=== PATIENT | male | born 1980 | race Caucasian/White ===

== ENCOUNTER 2019-04-03 09:10 | Inpatient (IN) | payer BC, SELFPAY ==
[2019-04-03] VITALS (28 sets, daily range): BP systolic 119–152; BP diastolic 91–106; PULSE 56–75; RESP 12–21; TEMP 36.4–37.1; O2SAT 96–100; BMI 27.3; BMI 30.2
--- NOTE | 2019-04-03 09:23 | CPS ---
PT HAD TWO EKGS IN [place] PRIOR TO ARRIVAL. PER DR. BYRD NO NEED FOR EKG UPON PT ARRIVAL TO ED. PT TO GO STRAIGHT TO PERSONAL PROPERTY ASSESSOR.
[2019-04-03] MEDS: TICAGRELOR 90 MG TABLET 180 MG PO (09:25)
[2019-04-03] MEDS: Heparin 10,000 UNITS/10 ML Vial 4000 UNITS IV (09:26)
--- NOTE | 2019-04-03 09:29 | RAD_ITS ---
STUDY: X-RAY CHEST REASON FOR EXAM: Male, 38 years old. STEMI. TECHNIQUE: Single AP portable view of the chest. COMPARISON: Comparison is made with prior examination dated May 04, 2016. FINDINGS: EKG electrodes are seen. Stable minimal increased markings at the left lung base suggestive of linear scarring and/or atelectasis. There is no demonstrated pleural abnormality. Normal size heart. Normal mediastinum and cecy. Normal visualized pulmonary arteries. Normal visualized aortic arch and descending thoracic aorta. Normal visualized thoracic spine. Normal visualized ribs, clavicles, and shoulders. There is no demonstrated abnormality of the visualized soft tissue structures of the upper abdomen. RAD/Chest 1 View (Portable) IMPRESSION: No acute abnormality is seen. Electronically Signed: Chester Dixon, at 9:40 EDT , Service support ,
--- NOTE | 2019-04-03 09:30 | ED.DCSUM_ITS ---
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 His mother and grandfather both had heart disease. He presents today with sudden onset of chest pain that started while driving this morning. He had dry heaves. He was unable to drive and pulled into the fire station. He was found to have anterior ST elevation on his EKG. He was treated by EMS with aspirin, Zofran, and fentanyl. On arrival, his pain is 2 out of 10. No allergies. Non-smoker. Physical Examination: Afebrile and vital signs unremarkable. Patient is alert and oriented. No acute distress. Skin normal without diaphoresis or pallor. Heart regular. Lungs clear. Extremities unremarkable. Test Results: EKG performed by EMS showed anterior elevation and inferior depression of his ST segments. This was not repeated in the ED for time purposes. Chest x-ray appeared to show no acute abnormality, official read is pending. No other testing is available at the time of this dictation. Emergency Department Course and Treatment: EKG was reviewed prior to the patient's arrival, and a STEMI team was paged. Patient was discussed with Dr. Valadez and also Dr. Lal. Patient's also arrived prior to EMS, and I spoke with her to obtain history. Patient was evaluated immediately on arrival to the ED. After discussion with cardiology, patient was also treated with Brilinta and heparin. A chest x-ray was done, but this did not delay care. Official read is pending. Pads and monitor applied. Second IV was placed. Patient is stable. He consented. He will be transferred to the Cell Feed Department Supervisor for further care. Treatment Plan: As above Disposition: Admission after Cell Feed Department Supervisor Impression: 1. Acute anterior STEMI This note was generated with [employer] software. It may contain incorrect words, spelling, and punctuation that were not noted in review of the chart prior to signing ED Disposition - Plan for ED Patient: Referrals: Care Physician,No Primary [Primary Care Provider] -
--- NOTE | 2019-04-03 09:38 | ED.RN ---
STEMI ALERT INITIATED PRIOR TO PT ARRIVAL. PT TO EXAM ROOM AND GIVEN 180 MG BRILINTA PO, 4000 UNITS HEPARIN IVP. CHEST XRAY OBTAIN, SECOND IV INITIATED, AND PT TRANSFERRED IMMEDIATELY TO PROGRAM TRAINER.
[2019-04-03 09:51] LABS: Absolute Neutrophil Count 4.6 X10^3/uL (2.0-7.7); Basophil# 0.05 X10^3/uL; Basophil% 0.5 % (0-1); Eosinophil# 0.19 X10^3/uL; Eosinophils% 1.8 % (0-5); Hematocrit 45.2 % (40-54); Hemoglobin 15.5 g/dL (13.0-16.5); Lymphocyte % 45.2 % (19-41); Mean Corp Hgb Conc 34.3 g/dL (32-36); Mean Corpuscular Hgb 29.5 pg (27.0-32.0); Mean Corpuscular Volume 86.1 fL (80-94); Monocyte% 10.1 % (0-10); NRBC Flagged by Analyzer 0 % (0-5); Neutrophil # 4.57 X10^3/uL (2.7-7.7); Platelet Count 338 K/mm3 (150-450); RBC Distribution Width CV 13.2 % (11.6-14.6); RBC Distribution Width SD 41.2 fl (35.1-43.9); Red Blood Count 5.25 M/mm3 (4.6-6.2); White Blood Count 10.9 K/mm3 (4.4-11.0)
[2019-04-03 10:06] LABS: Anion Gap 11 (5-15); BUN 16 mg/dL (7-18); BUN/Creat Ratio 11.4 RATIO (10-20); Chloride 105 mmol/L (98-107); EST Glomerular Filtration Rate 59 mL/min (>60); Est Glom Filt Rate - Afr Amer 72 mL/min (>60); Estimated Creatinine Clearance 67.86 ml/min; Glucose 160 mg/dL (74-106); Potassium 3.5 mmol/L (3.5-5.1); Sodium Level 136 mmol/L (136-145)
[2019-04-03 10:09] LABS: Prothrombin Time (Protime)PT. 12.7 SECONDS (11.7-14.9)
[2019-04-03 10:10] LABS: Partial Thromboplast Time 26.8 Seconds (24.1-36.2)
--- NOTE | 2019-04-03 10:45 | EKG12_ITS ---
Test Reason : Blood Pressure : / mmHG Vent. Rate : 067 BPM Atrial Rate : 067 BPM P-R Int : 146 ms QRS Dur : 084 ms QT Int : 434 ms P-R-T Axes : 032 075 126 degrees QTc Int : 458 ms Normal sinus rhythm Septal infarct , age undetermined T wave abnormality, consider anterolateral ischemia Abnormal ECG When compared with ECG of 04-APR-2019 04:28, MANUAL COMPARISON REQUIRED, DATA IS UNCONFIRMED Confirmed by SELVIN PERALES ([id number]), commissioning editor JIM AVILES ([id number]) on 04/07/2019 9:06:33 AM Referred By: Cristian Lal Confirmed By:SELVIN PERALES
--- NOTE | 2019-04-03 10:48 | ED.RN ---
PT ARRIVE VIA EMS AT 0921. PHYSICIAN AT BEDSIDE AT THE TIME OF ARRIVAL. PRE-REGISTRATION WAS INITIATED PRIOR TO PT ARRIVAL, THEREFORE TIME OF ARRIVAL IS INCORRECT. ATTEMPTS ARE BEING MADE TO EDIT THE TIMESTAMP APPROPRIATE FOR ACCURACY.
--- NOTE | 2019-04-03 10:49 | PCM.CONS.C ---
Reason for Consult Date of Consultation: 04/03/19 Reason for Consultation: STEMI History of Present Illness: The patient is a 38 year old M [with family history of coronary artery disease, no known chronic] medical conditions, non-smoker brought by EMS to [facility] because of chest pain and ST elevation on the EKG. Patient's chest pain started at around 8:30 AM this morning. He was brought emergently to the Hoop Riveting Machine Operator and underwent coronary angiography which revealed 95% stenosis in the LAD that was treated with drug-eluting stent placement. Patient's chest pain has improved significantly. He does have residual disease in the circumflex and RCA which we will treat medically at this time. Review of systems: All systems reviewed, all else is negative except that in the HPI. Past Medical History Allergies/Adverse Reactions: Allergies No Known Allergies Allergy (Verified 05/04/16 16:35) Home Medications: Ambulatory Orders Medication Instructions Recorded No Known/Unobtainable [No Known 05/04/16 Home Medications] Smoking Status: Unknown if ever smoked Objective: Vital Signs Temp Pulse Resp BP Pulse Ox 97.5 F L 59 L 20 H 137/102 H 100 04/03/19 09:21 04/03/19 09:21 04/03/19 09:31 04/03/19 09:31 04/03/19 09:21 Oxygen Delivery Method Room Air Weight: 180 lb Body Mass Index (BMI) 27.3 General: Awake, Alert, Oriented x 3 HEENT: Atraumatic Oral: Moist Mucosa Neck: Supple Lungs: Clear to auscultation Cardiovascular: Regular Rhythm, Normal S1, Normal S2 Abdomen: Soft Extremities: No edema Skin: No Rashes Psych/Mental Status: Appropriate 04/03/19 09:25: PT 12.7, INR 1.0, APTT 26.8 04/03/19 09:25: WBC 10.9, RBC 5.25, Hgb 15.5, Hct 45.2, MCV 86.1, MCH 29.5, MCHC 34.3, Plt Count 338, MPV 11.0, Immature Gran % (Auto) 0.400, Neut % (Auto) 42.0 L, Lymph % (Auto) 45.2 H, Kings % (Auto) 10.1 H, Eos % (Auto) 1.8, Baso % (Auto) 0.5, Absolute Neuts (auto) 4.6, Nucleated RBC % 0 04/03/19 09:25: Sodium 136, Potassium 3.5, Chloride 105, Carbon Dioxide 20.0 L, Anion Gap 11, BUN 16, Creatinine 1.40 H, Est GFR (MDRD) Af Amer 72, Est GFR (MDRD) Non-Af 59 L, BUN/Creatinine Ratio 11.4, Glucose 160 H, Calcium 9.0, Troponin I 0.038 Rhythm: EKG: ECHO: Stress Test: Cardiac Cath: PCI: CT Surgery: Holter monitor: EPS: PPM: CXR: Chest CT Scan: Assessment/Plan 1. Anterior ST elevation KS: Patient was treated with drug-eluting stent to the LAD. We will keep the patient on aspirin, Brilinta, atorvastatin, metoprolol and lisinopril. If he tolerates the metoprolol and lisinopril, at the time of discharge we will switch the metoprolol to Toprol-XL. He will be admitted to the ICU for further management of his ST elevation KS. 2. LV dysfunction: In the setting of acute KS. Patient came fairly quickly after symptom onset. He will likely have recovery of his LV function. We will keep the patient on beta-nena and CARMEN inhibitor. We will check a 2D echo on Wednesday and if there is LV dysfunction we may have to check it again in 3 months. 3. Residual coronary artery disease: Patient has residual stenoses in the RCA and circumflex. We will treat these medically at this time.
--- NOTE | 2019-04-03 11:14 | CL.I_ITS ---
Patient Name: GUNNAR ALLEN Study Date: 04/03/2019 Performing: Riley Lal MD Ht: 66 inches 167.64 cm : 1980 Wt: 180.2 lbs 81.64 kg Age: 38 Gender: male BSA: 1.91 PROCEDURE(S) PERFORMED [id number]/LV [id number], CHUCK AND/OR PTCA, ARTERY OR GRAFT, SINGLE VESSEL CLINICAL PROFILE AND CO-MORBIDITIES Indications: ACS <= 24 hrs Heart Failure: None Stress/Imaging Stress/Image Study Performed: No CAD Presentations: STEMI. Symptom onset Date/Time: 04/03/19 Time: 8:30 am CONCLUSIONS CAD as described. Severe LV dysfunction. No significant or MR. Successful PCI of mLAD with CHUCK RECOMMENDATIONS ASA Indefinitley Brilinta for at least 12 months Risk factor modification Routine post interventional care DESCRIPTION OF PROCEDURE The patient arrived to the procedure lab. The risks and benefits of the procedure as well as a full d escription of our services here and lack of surgical backup were fully explained to the patient and/o r their significant other prior to the catheterization. The Timeout was completed, verifying the pro ect patient and procedure. The patient's procedural site was prepped and draped in the usual fashion. Local anesthetic was given subcutaneously to right radial region with Lidocaine 2%. Using a modified Seldinger technique, arterial access was obtained via the right radial artery, a 6Fr sheath was inse rted.. Left Coronary Artery selective angiography was performed in multiple views using a 6 Fr. XB 3 .0. Left Ventriculography was performed in PEOPLES projection using a 5 Fr. JR4. LV to AO pullback pressu res were then recorded. Right Coronary Artery selective angiography was then performed in multiple vi ews using a 5 Fr. JR 4 catheter. Left Coronary Artery selective angiography was performed in multiple views using a 6 Fr. XB 3.0 XB 3.0 Guide catheter was inserted and engaged into the LCA. BMw [place] Guide wire was advance d to the LAD. Emerge 3.0 x 12 Balloon catheter was inserted. Balloon catheter was advanced across les ion in the LAD, mid. PTCA balloon inflated at 6 atms for 11 secs. PTCA balloon inflated at 8 atms for 22 secs. Synergy 3.5 x 24 Drug Eluting stent was inserted. Drug Eluting stent was advanced across th e lesion in the LAD, mid. Angiogram performed pre stent deployment. Angiogram performed post stent de ployment. The arterial sheath was pulled and a TR Band was applied for hemostasis CORONARY ANGIOGRAPHY DOMINANCE: Right Dominant LEFT HEART ASSESSMENT Left Ventricular Ejection Fraction: by LV Gram 25-30 % Anterior and apical Akinesis LEFT MAIN: Mild luminal irregularities LEFT ANTERIOR DESCENDING ARTERY: MID LAD: 95 % Stenosis CIRCUMFLEX ARTERY: Mild luminal irregularities OM 1: Proximal - 50 % Stenosis RIGHT CORONARY ARTERY: MID RCA: 20 % Stenosis RT PDA: Ostial - 60 % Stenosis VALVE FINDINGS: No Aortic Valve Stenosis No Mitral Insufficency INTERVENTION INFORMATION LESION SITE: LAD (Mid) Lesion Complexity: High/C, chronic total occlusion: No, lesion at bifurcation: No, thrombus present: Yes, lesion length: 22 mm, culprit lesion: Yes, Previously treated lesion: No Pre Stenosis: 95 % Pre intervention SVETLANA flow: 1 PROCEDURE: Drug Eluting Stent with pre dilatation. Post Stenosis: 0 % Post intervention SVETLANA flow: 3 Lesion Devices: Posh Eyesis 6 Fr XB3.0 100cm Guide Catheter Rey Sci EMERGE MR 3.00x12 BALLOON Rey Sci Synergy MR CHUCK 3.50x24 COMPLICATIONS No Complications PROCEDURE MEDICATIONS Oxygen: 2 L/min via nasal cannula Heparin given IA 04/03/2019 09:46:19 Verapamil 2.5mg, Ntg 100mcgs, 3000 units of Heparin given IA 04/03/2019 09:46:19 IV Bolus: .9 NaCl 550 ml total 04/03/2019 10:11:25 SUMMARY OF HEMODYNAMIC DATA Time AIR REST ECG 09:35:59 ECG 09:39:17 AO 109/74 (94) SA 09:48:42 LV 124/3, 22 10:02:38 LV 122/2, 21 10:02:45 LV 124/3, 22 10:03:26 LV 124/3, 22 10:03:32 LVp 129/8, 23 10:03:55 AOp 116/83 (100) 10:04:00 Signed By Riley Lal MD On 04/03/2019 11:13:00 Riley Lal MD
[2019-04-03] MEDS: 0.9% Normal Saline 1,000 ML 40 ML IV (11:41)
--- NOTE | 2019-04-03 11:59 | CRPHASE1_ITS ---
Patient Communication PHII Cardiac Rehab Discussed with Patient:: Yes Guide to Cardiac Rehab Given to Patient:: Yes Cardiac Rehab Facility Choice List Given to Patient:: Yes - [facility] Choice Program [facility] CR PHII:: Communication Given to CR, Refer to [facility] Silica Filter Operator:: Cristian Lal Phase II Cardiac Rehab:: Yes Sessions:: 36 sessions - 3 days/wk, 12 weeks Phase I Charge:: Level I - Education Risk Factors/Lifestyle Smoking Status: Never smoker Hx Hypertension: No Hx Dyslipidemia: No Hx Obesity: Yes Height: 5 ft 8 in Weight:: 180 lb BMI: 27.3 Risk Factor for Sedentary Lifestyle: Lowest Risk Family History: Heart Disease Phase I Education Given On:: [place], Nutrition, Antiplatelet medication, CHF Issues Affecting Care:: None Knowledge of Condition:: Yes Learning Preferences: Verbal, Written, Audio/Visual, Demonstration Medical/Surgical History NC:: Yes - STEMI Discharge/Home/Social Eval Marital Status: Exercise/Recreation/Interests:: coaches soccer. Cardiac Rehabilitation Info Cardiac Rehabilitation Program Information: Cardiac Rehabilitation is important for patients like you who are recovering from a heart problem. Cardiac rehabilitation programs are recognized as integral to the continued care of the patient with coronary heart disease. The cardiac rehabilitation program is designed to optimize a patient's physical, psychological, and social functioning. Health grounds caretaker work in cardiac rehabilitation programs and assist you with getting the treatments you need to get stronger and healthier - like exercise, healthy eating habits, and medications. Cardiac rehabilitation has been show to help people with heart problems live longer and have better life enjoyment than people who do not go to cardiac rehabilitation. Please contact the Cardiac Rehabilitation Program at [facility] at in two weeks if you have not heard from them.
[2019-04-03 12:01] LABS: Hematocrit 40.4 % (40-54); Hemoglobin 13.8 g/dL (13.0-16.5); Mean Corp Hgb Conc 34.2 g/dL (32-36); Mean Corpuscular Hgb 29.8 pg (27.0-32.0); Mean Corpuscular Volume 87.3 fL (80-94); Mean Platelet Vol. 10.7 fl (6.2-12.0); Platelet Count 252 K/mm3 (150-450); RBC Distribution Width CV 13.1 % (11.6-14.6); RBC Distribution Width SD 41.4 fl (35.1-43.9); Red Blood Count 4.63 M/mm3 (4.6-6.2); White Blood Count 12.5 K/mm3 (4.4-11.0)
--- NOTE | 2019-04-03 12:07 | CRPH1.INSTRU ---
General Education CAD and cardiac anatomy and function:: Patient communicates acknowledgment, Needs reinforcement Explanation of diagnoses and procedures:: Patient communicates acknowledgment, Needs reinforcement Sign/Symptoms of MT:: Patient communicates acknowledgment, Needs reinforcement Antiplatelet therapy: Patient communicates acknowledgment, Needs reinforcement Proper use of NTG-SL: Patient communicates acknowledgment, Needs reinforcement Emergency procedures and activation of EMS: Patient communicates acknowledgment, Needs reinforcement Compliance of all prescribed medications: Patient communicates acknowledgment, Needs reinforcement Smoking Patient Nicotine/Smoking Risk Factors Are:: Non-smoker Nicotine/Smoking Response Code:: Not instructed Dyslipidemia Recommendations Include:: Lipid profile not available, Reviewed NCEP/ATP guidelines, Therapeutic Lifestyle Change dietary guidelines Dyslipidemia Response Code:: Patient communicates acknowledgment, Needs reinforcement Overweight/Obesity Patient Overweight/Obesity Risk Factors Are:: Overweight = 26-29 Recommendations Include:: Weight loss of 5-10%, Reduced calorie diet, Exercise 5-7 times/week Overweight/Obesity:: Patient communicates acknowledgment, Needs reinforcement Hypertension Patient Hypertension Risk Factors Are:: No documented hx of HTN Recommendations Include:: Maintain BP <130/85, DASH dietary guidelines, Decrease/maintain normal body weight, Moderation of ETOH Hypertension:: Patient communicates acknowledgment, Needs reinforcement Heart Disease Patient Heart Disease Risk Factors Are:: Family history of heart disease < 65 years old Recommendations Include:: Educated family members of their risk, Educated family members of importance of prevention of heart disease Heart Disease Response Code:: Patient communicates acknowledgment, Family communicates acknowledgment, Needs reinforcement Diabetes Patient Diabetes Risk Factors Are:: No documented hx of diabetes Diabetes:: Not instructed Metabolic Syndrome Metabolic Syndrome Response Code:: Not instructed Sedentary Recommendations Include:: Aerobic exercise 5-7 times/week for 20-30 minutes continuously, Benefits of regular exercise, Discussed home walking program, Monitored Outpatient Cardiac Rehab Sedentary Response Code:: Patient communicates acknowledgment, Needs reinforcement Stress Patient Stress Risk Factors Are:: Patient denies stress as a risk factor Recommendations Include:: Identification of stressors, and assessment of coping skills, Stress management techniques Stress Response Code:: Patient communicates acknowledgment, Needs reinforcement
--- NOTE | 2019-04-03 12:13 | HP.PCM_ITS ---
Problem List (1) STEMI (ST elevation myocardial infarction) Status: Acute (2) ST elevation (STEMI) myocardial infarction involving left anterior descending coronary artery Status: Acute History of Present Illness Date of Admission: 04/03/19 Chief Complaint: Chest discomfort The patient is a 38 year old M in relatively good health on no medications who presented with chest discomfort. Patient symptoms started on the morning of his presentation. He developed sudden onset of chest pain while sitting in his couch. Pain was described as intense pressure in the retrosternal region. He later broke out into cold sweat. He called the squad and was brought to the emergency department EKG demonstrated ST segment elevation ND patient underwent emergency left heart catheterization with intervention to his LAD admitted to the intensive care unit subsequently. Past Medical History Allergies No Known Allergies Allergy (Verified 05/04/16 16:35) Home Medications: Ambulatory Orders Medication Instructions Recorded No Known/Unobtainable [No Known 05/04/16 Home Medications] Smoking Status: Never smoker - *Family History Maternal History Items: Heart Disease Review of Systems Constitutional: Denies: Anorexia, Chills, Fever, Night Sweats, Weight Change HEENT: Denies: Head Aches, Sinus Congestion, Sinus Drainage Cardiovascular: Reports: Chest Pain Respiratory: Denies: Cough, Shortness of breath at rest, Shortness of breath upon exertion, Sputum production Gastrointestinal: Denies: Abdominal Pain, Hematemesis, Hematochezia, Nausea, Melena, Vomiting Genitourinary: Denies: Dysuria, Frequency, Hematuria, Urgency Musculoskeletal: Denies: Joint Pain, Joint Tenderness Skin: Denies: Rash Neurological: Denies: Focal weakness, Numbness, Tingling Psychiatric: Denies: Homicidal Ideations, Suicidal Ideations Hematologic/ Lymphatic: Denies: Easy Bruising, Easy Bleeding VTE Information - Inpt Only VTE Present on Admission: No VTE Mechan Device Prophylaxis: None VTE Pharm Prophylaxis ordered?: Yes Patient Problems: Active and Suspected Problems STEMI (ST elevation myocardial infarction) (Acute) ST elevation (STEMI) myocardial infarction involving left anterior descending coronary artery (Acute) Objective: GENERAL: cooperative HEENT: Atraumatic; moist oral mucosa EYES; Anicteric, Normal Conjunctiva NECK; supple, normal thyroid, no distended JVD. RESPIRATORY: Diminished to auscultation bilaterally, CARDIOVASCULAR: Regular S1 S2, no audible murmurs GI: soft, non-tender, normoactive bowel sounds, : No Renal angle tenderness; EXTREMITIES: No edema, no clubbing, no cyanosis. MUSCULOSKELETAL: No Joint Tenderness; no muscle waisting NEURO: Awake; no lateralizing signs. SKIN: No Rash PSYCH; Normal affect - Physical Exam Vital Signs Temp Pulse Resp BP Pulse Ox 97.8 F 73 16 128/95 H 99 04/03/19 10:45 04/03/19 11:15 04/03/19 11:15 04/03/19 11:15 04/03/19 11:15 Oxygen Delivery Method Room Air Weight: 81.647 kg Body Mass Index (BMI) 30.2 Laboratory Tests Past 24 Hrs 04/03/19 04/03/19 04/03/19 09:25 09:25 09:25 WBC 10.9 RBC 5.25 Hgb 15.5 Hct 45.2 MCV 86.1 MCH 29.5 MCHC 34.3 RDW Std Deviation 41.2 RDW Coeff of Merlyn 13.2 Plt Count 338 MPV 11.0 Immature Gran % (Auto) 0.400 Neut % (Auto) 42.0 L Lymph % (Auto) 45.2 H Slope % (Auto) 10.1 H Eos % (Auto) 1.8 Baso % (Auto) 0.5 Absolute Neuts (auto) 4.6 Absolute Lymphs (auto) 4.90 H Nucleated RBC % 0 PT 12.7 INR 1.0 APTT 26.8 Sodium 136 Potassium 3.5 Chloride 105 Carbon Dioxide 20.0 L Anion Gap 11 BUN 16 Creatinine 1.40 H Estim Creat Clear Calc 67.86 Est GFR (MDRD) Af Amer 72 Est GFR (MDRD) Non-Af 59 L BUN/Creatinine Ratio 11.4 Glucose 160 H Calcium 9.0 Troponin I 0.038 04/03/19 11:45 WBC 12.5 H RBC 4.63 Hgb 13.8 Hct 40.4 MCV 87.3 MCH 29.8 MCHC 34.2 RDW Std Deviation 41.4 RDW Coeff of Merlyn 13.1 Plt Count 252 MPV 10.7 Immature Gran % (Auto) Neut % (Auto) Lymph % (Auto) Slope % (Auto) Eos % (Auto) Baso % (Auto) Absolute Neuts (auto) Absolute Lymphs (auto) Nucleated RBC % PT INR APTT Sodium Potassium Chloride Carbon Dioxide Anion Gap BUN Creatinine Estim Creat Clear Calc Est GFR (MDRD) Af Amer Est GFR (MDRD) Non-Af BUN/Creatinine Ratio Glucose Calcium Troponin I Assessment/Plan All Active Problems STEMI (ST elevation myocardial infarction) (Acute) ST elevation (STEMI) myocardial infarction involving left anterior descending coronary artery (Acute) Patient is a 38-year-old gentleman admitted with chest pain underwent emergency left heart catheterization following diagnosis of acute STEMI 1. Acute ST segment elevation ND. Patient underwent left heart catheterization which [id number]% stenosis in the LAD patient underwent PCI with drug- eluting stent placement. He was also noted to have residual disease in the circumflex and RCA 2. Overweight with BMI of 27.4 3. Family history of premature CAD 4. DVT prophylaxis Lovenox Code Visit Inpatient E&M: 68422 Init Hosp L3
--- NOTE | 2019-04-03 14:34 | EKG12_ITS ---
Test Reason : PCI Blood Pressure : / mmHG Vent. Rate : 065 BPM Atrial Rate : 065 BPM P-R Int : 162 ms QRS Dur : 094 ms QT Int : 412 ms P-R-T Axes : 043 033 036 degrees QTc Int : 428 ms Normal sinus rhythm Anterior infarct , age undetermined Abnormal ECG No previous ECGs available Confirmed by SELVIN PERALES ([id number]), editor book SONY ROSENTHAL ([id number]) on 04/12/2019 3:41:30 PM Referred By: Cristian Lal Confirmed By:SELVIN PERALES
[2019-04-03] MEDS: Acetaminophen 325 MG Tablet 650 MG PO ×2 (16:00→20:04)
[2019-04-03] MEDS: Metoprolol Tartrate 25 MG Tablet PO (21:31)
[2019-04-03] MEDS: TICAGRELOR 90 MG TABLET PO (21:31)
[2019-04-03] MEDS: Atorvastatin Calcium 80 MG Tablet PO (21:31)
[2019-04-04] VITALS (25 sets, daily range): BP systolic 98–148; BP diastolic 60–108; PULSE 58–81; RESP 12–26; TEMP 36.6–37.1; O2SAT 95–100
[2019-04-04] MEDS: Acetaminophen 325 MG Tablet 650 MG PO ×4 (00:11→19:47)
[2019-04-04 04:10] LABS: Hematocrit 39.3 % (40-54); Hemoglobin 13.1 g/dL (13.0-16.5); Mean Corp Hgb Conc 33.3 g/dL (32-36); Mean Corpuscular Hgb 29.8 pg (27.0-32.0); Mean Corpuscular Volume 89.3 fL (80-94); Mean Platelet Vol. 10.7 fl (6.2-12.0); Platelet Count 262 K/mm3 (150-450); RBC Distribution Width CV 13.5 % (11.6-14.6); RBC Distribution Width SD 44.4 fl (35.1-43.9); White Blood Count 14.3 K/mm3 (4.4-11.0)
[2019-04-04 05:53] LABS: ALB/GLOB Ratio 1.2 RATIO (0.9-2.4); AST(SGOT) 294 U/L (15-37); Alanine Aminotransfer ALT/SGPT 65 U/L (16-61); Albumin, Serum 2.9 g/dL (3.2-5.0); Alkaline Phosphatase 50 U/L (45-117); Anion Gap 9 (5-15); BUN 13 mg/dL (7-18); BUN/Creat Ratio 13.1 RATIO (10-20); Calcium,Total 6.9 mg/dL (8.5-10.1); Chloride 112 mmol/L (98-107); Cholesterol 145 mg/dL (200); EST Glomerular Filtration Rate 88 mL/min (>60); Est Glom Filt Rate - Afr Amer 107 mL/min (>60); Globulin 2.5 g/dL (2.2-4.2); Glucose 105 mg/dL (74-106); High Density Lipoprotein 23 mg/dL; Potassium 3.6 mmol/L (3.5-5.1); Protein, Total 5.4 g/dL (6.4-8.2); Sodium Level 143 mmol/L (136-145); Triglycerides 359 mg/dL; Very Low Density Lipoprotein 72 mg/dL (5-40)
--- NOTE | 2019-04-04 07:06 | PN_ITS ---
Patient Problems: Active and Suspected Problems STEMI (ST elevation myocardial infarction) (Acute) ST elevation (STEMI) myocardial infarction involving left anterior descending coronary artery (Acute) Subjective: Patient is a 38-year-old gentleman admitted with chest pain underwent emergency left heart catheterization following diagnosis of acute STEMI 04/04/2019. Patient did experience intermittent chest pain during the evening rating his pain at 4 out of 10. He was also found to have elevated blood pressure. Objective: GENERAL: cooperative HEENT: Atraumatic; moist oral mucosa EYES; Anicteric, Normal Conjunctiva NECK; supple, normal thyroid, no distended JVD. RESPIRATORY: Diminished to auscultation bilaterally, CARDIOVASCULAR: Regular S1 S2, no audible murmurs GI: soft, non-tender, normoactive bowel sounds, : No Renal angle tenderness; EXTREMITIES: No edema, no clubbing, no cyanosis. MUSCULOSKELETAL: No Joint Tenderness; no muscle waisting NEURO: Awake; no lateralizing signs. SKIN: No Rash PSYCH; Normal affect Vitals/I&O's: Vital Signs Temp Pulse Resp BP Pulse Ox 98.4 F 63 14 121/83 H 99 04/04/19 04:00 04/04/19 06:00 04/04/19 06:00 04/04/19 06:00 04/04/19 06:00 Oxygen Delivery Method Room Air Weight: 85 kg Body Mass Index (BMI) 30.2 Intake and Output for Last 24 Hours 04/02/19 04/03/19 04/04/19 23:59 23:59 23:59 Intake Total 1615 / 1615 550 / 550 Output Total 400 / 400 Balance 1215 / 1215 550 / 550 Laboratory Results 04/03/19 09:25: PT 12.7, INR 1.0, APTT 26.8 04/03/19 09:25: WBC 10.9, RBC 5.25, Hgb 15.5, Hct 45.2, MCV 86.1, MCH 29.5, MCHC 34.3, RDW Std Deviation 41.2, RDW Coeff of Merlyn 13.2, Plt Count 338, MPV 11.0, Immature Gran % (Auto) 0.400, Neut % (Auto) 42.0 L, Lymph % (Auto) 45.2 H, [place] % (Auto) 10.1 H, Eos % (Auto) 1.8, Baso % (Auto) 0.5, Absolute Neuts (auto) 4.6, Absolute Lymphs (auto) 4.90 H, Nucleated RBC % 0 04/03/19 09:25: Sodium 136, Potassium 3.5, Chloride 105, Carbon Dioxide 20.0 L, Anion Gap 11, BUN 16, Creatinine 1.40 H, Estim Creat Clear Calc 67.86, Est GFR (MDRD) Af Amer 72, Est GFR (MDRD) Non-Af 59 L, BUN/Creatinine Ratio 11.4, Glucose 160 H, Calcium 9.0, Troponin I 0.038 04/03/19 11:45: WBC 12.5 H, RBC 4.63, Hgb 13.8, Hct 40.4, MCV 87.3, MCH 29.8, MCHC 34.2, RDW Std Deviation 41.4, RDW Coeff of Merlyn 13.1, Plt Count 252, MPV 10.7 04/04/19 04:00: WBC 14.3 H, RBC 4.40 L, Hgb 13.1, Hct 39.3 L, MCV 89.3, MCH 29.8, MCHC 33.3, RDW Std Deviation 44.4 H, RDW Coeff of Merlyn 13.5, Plt Count 262, MPV 10.7 04/04/19 04:00: Sodium 143, Potassium 3.6, Chloride 112 H, Carbon Dioxide 22.0, Anion Gap 9, BUN 13, Creatinine 1.00, Estim Creat Clear Calc 95.00, Est GFR (MDRD) Af Amer 107, Est GFR (MDRD) Non-Af 88, BUN/Creatinine Ratio 13.1, Glucose 105, Calcium 6.9 L, Total Bilirubin 0.70, AST 294 H, ALT 65 H, Alkaline Phosphatase 50, Total Protein 5.4 L, Albumin 2.9 L, Globulin 2.5, Albumin/Globulin Ratio 1.2, Triglycerides 359 H, Cholesterol 145, LDL Cholesterol 50, VLDL Cholesterol 72 H, HDL Cholesterol 23 L Current Medications Acetaminophen (Tylenol) 650 mg PO Q4H PRN PRN PRN Reason: PAIN Last Admin: 04/04/19 04:07 Dose: 650 mg Documented by: Aspirin (Ecotrin) 81 mg PO DAILY@0800 [facility] Atorvastatin Calcium (Lipitor) 80 mg PO QHS [facility] Last Admin: 04/03/19 21:31 Dose: 80 mg Documented by: Atropine Sulfate () 0.5 mg IV UD PRN PRN Reason: HR <50 bpm Heparin Sodium (Beef Lung) (Heparin 500 Unit/5 Ml (100/Ml)) 500 unit IV UD PRN PRN Reason: HEPARIN FLUSH Sodium Chloride () 250 mls @ 15 mls/hr IV .[id number] PRN PRN Reason: SALINE FLUSH Labetalol HCl (Trandate) 5 mg IV X1 PRN PRN Reason: SBP > 160 when pulling sheath Stop: 04/05/19 10:42 Lisinopril (Zestril) 2.5 mg PO DAILY [facility] Metoprolol Tartrate (Lopressor (Beta Malik)) 25 mg PO BID [facility] Last Admin: 04/03/19 21:31 Dose: 25 mg Documented by: Sodium Chloride () 10 - 40 ml IV UD PRN PRN Reason: SALINE FLUSH Sodium Chloride () 500 ml IV BOLUS PRN PRN Reason: VASO-VAGAL PROTOCOL Ticagrelor (Brilinta) 90 mg PO BID [facility] Last Admin: 04/03/19 21:31 Dose: 90 mg Documented by: Medical Necessity - Tobacco Use Smoking Status: Never smoker Assessment/Plan All Active Problems STEMI (ST elevation myocardial infarction) (Acute) ST elevation (STEMI) myocardial infarction involving left anterior descending coronary artery (Acute) Patient is a 38-year-old gentleman admitted with chest pain underwent emergency left heart catheterization following diagnosis of acute STEMI 1. Acute ST segment elevation [place]. Patient underwent left heart catheterization which [id number]% stenosis in the LAD patient underwent PCI with drug- eluting stent placement. He was also noted to have residual disease in the circumflex and RCA patient is on dual antiplatelet therapy with aspirin as well as Ticagrelor 2. Hypertriglyceridemia patient is on statin therapy 3. Elevated blood pressure patient was noted previously known hypertensive however blood pressure has remained elevated throughout his stay his currently lisinopril 4. Overweight with BMI of 27.4 5. Family history of premature CAD 6. DVT prophylaxis Lovenox Active Medications Acetaminophen (Tylenol) 650 mg PO Q4H PRN PRN PRN Reason: PAIN Last Admin: 04/04/19 04:07 Dose: 650 mg Documented by: Aspirin (Ecotrin) 81 mg PO DAILY@0800 [facility] Atorvastatin Calcium (Lipitor) 80 mg PO QHS [facility] Last Admin: 04/03/19 21:31 Dose: 80 mg Documented by: Atropine Sulfate () 0.5 mg IV UD PRN PRN Reason: HR <50 bpm Heparin Sodium (Beef Lung) (Heparin 500 Unit/5 Ml (100/Ml)) 500 unit IV UD PRN PRN Reason: HEPARIN FLUSH Sodium Chloride () 250 mls @ 15 mls/hr IV .[id number] PRN PRN Reason: SALINE FLUSH Labetalol HCl (Trandate) 5 mg IV X1 PRN PRN Reason: SBP > 160 when pulling sheath Stop: 04/05/19 10:42 Lisinopril (Zestril) 2.5 mg PO DAILY [facility] Metoprolol Tartrate (Lopressor (Beta Malik)) 25 mg PO BID [facility] Last Admin: 04/03/19 21:31 Dose: 25 mg Documented by: Sodium Chloride () 10 - 40 ml IV UD PRN PRN Reason: SALINE FLUSH Sodium Chloride () 500 ml IV BOLUS PRN PRN Reason: VASO-VAGAL PROTOCOL Ticagrelor (Brilinta) 90 mg PO BID [facility] Last Admin: 04/03/19 21:31 Dose: 90 mg Documented by: Code Visit Inpatient E&M: 81350 Subs Hosp L3
--- NOTE | 2019-04-04 09:15 | CASEMGMT ---
RN CM Assessment. Presentation: STEMI Intro role of CM to patient in room, along with his . Pt is awake, alert and able to participate. Demographics, pharmacy and no PCP verified. PCP: none, has started to contact Dr. Drew Landa III to establish Specialist: Dr. Lal Insurance: [place] Prescription coverage: yes. [place] savings card given to pt and explained. [facility] Living arrangements/DME: pt lives independently, no DME Transportation: pt drives, but can assist. DC PLAN: home on discharge. No needs identified. Cassia SANCHEZ RN ACM
[2019-04-04] MEDS: Lisinopril 2.5 MG Tablet PO (09:22)
[2019-04-04] MEDS: Aspirin E.C. 81 MG Tablet PO (09:22)
[2019-04-04] MEDS: Metoprolol Tartrate 25 MG Tablet PO ×2 (09:23→22:43)
[2019-04-04] MEDS: TICAGRELOR 90 MG TABLET PO ×2 (09:23→22:43)
--- NOTE | 2019-04-04 10:00 | EKG12_ITS ---
Test Reason : AM EKG Blood Pressure : / mmHG Vent. Rate : 060 BPM Atrial Rate : 060 BPM P-R Int : 158 ms QRS Dur : 094 ms QT Int : 412 ms P-R-T Axes : 048 042 085 degrees QTc Int : 412 ms Normal sinus rhythm Anteroseptal infarct , age undetermined Abnormal ECG No previous ECGs available Confirmed by SELVIN PERALES ([id number]), editor at large JIM AVILES ([id number]) on 04/07/2019 8:57:59 AM Referred By: Cristian Lal Confirmed By:SELVIN PERALES
--- NOTE | 2019-04-04 16:32 | PCM.PN.CARD ---
Subjectve: Doing well. No chest pain. Objective: Vital Signs Temp Pulse Resp BP Pulse Ox 97.9 F 81 22 H 137/94 H 99 04/04/19 15:00 04/04/19 15:00 04/04/19 15:00 04/04/19 15:00 04/04/19 15:00 Oxygen Delivery Method Room Air Weight: 187 lb 6.287 oz Body Mass Index (BMI) 30.2 Intake and Output for Last 24 Hours 04/02/19 04/03/19 04/04/19 23:59 23:59 23:59 Intake Total 1615 / 1615 910 / 910 Output Total 400 / 400 450 / 450 Balance 1215 / 1215 460 / 460 General: Awake, Alert, Oriented x 3 HEENT: PERRL, EOMI, Sclera Non Icteric Neck: Supple, Good ROM, No Lymph Node Enlargement Lungs: Clear to auscultation Cardiovascular: Regular Rhythm, Normal S1, Normal S2, No Murmurs, No Rubs, No Gallops Skin: No Rashes Psych/Mental Status: Appropriate 04/04/19 04:00: WBC 14.3 H, RBC 4.40 L, Hgb 13.1, Hct 39.3 L, MCV 89.3, MCH 29.8, MCHC 33.3, Plt Count 262, MPV 10.7 04/04/19 04:00: Sodium 143, Potassium 3.6, Chloride 112 H, Carbon Dioxide 22.0, Anion Gap 9, BUN 13, Creatinine 1.00, Est GFR (MDRD) Af Amer 107, Est GFR (MDRD) Non-Af 88, BUN/Creatinine Ratio 13.1, Glucose 105, Calcium 6.9 L, Total Bilirubin 0.70, Triglycerides 359 H, Cholesterol 145, LDL Cholesterol 50, VLDL Cholesterol 72 H, HDL Cholesterol 23 L Rhythm: EKG: ECHO: Stress Test: Cardiac Cath: PCI: CT Surgery: Holter monitor: EPS: PPM: CXR: Chest CT Scan: Medical Necessity - Tobacco Use Smoking Status: Never smoker Assessment/Plan 1. Anterior ST elevation [place]: Patient was treated with drug-eluting stent to the LAD. We will keep the patient on aspirin, Brilinta, atorvastatin, metoprolol and lisinopril. If he tolerates the metoprolol and lisinopril, at the time of discharge we will switch the metoprolol to Toprol-XL. 2. LV dysfunction: In the setting of acute [place]. Patient came fairly quickly after symptom onset. He will likely have recovery of his LV function. We will keep the patient on beta-nena and CARMEN inhibitor. We will check a 2D echo tomorrow and if there is LV dysfunction we may have to check it again in 3 months. 3. Residual coronary artery disease: Patient has residual stenoses in the RCA and circumflex. We will treat these medically at this time.
--- NOTE | 2019-04-04 17:58 | ECHOD_ITS ---
Reason For Study: cad/ashd Procedure This was a 2D Doppler, Color Flow transthoracic echocardiogram. Exam performed portable in patient room. Left Ventricle Normal size and thickness. The estimated ejection fraction is 40 %. Stage 1 diastolic dysfunction. Hypokinesis of the anterior wall and apex. Right Ventricle Normal RV size. Normal systolic function. Atria Normal left atrium. Normal right atrium. No doppler evidence for ASD. Mitral Valve There is no mitral valve stenosis. Trivial mitral valve insufficiency. Tricuspid Valve There is no tricuspid stenosis. Unable to estimate RV systolic pressure due to insufficient tricuspid regurgitant envelope. Trivial tricuspid valve insufficiency. Aortic Valve Trisinus/trileaflet aortic valve. There is no aortic stenosis. No aortic valve insufficiency. Pulmonic Valve There is no pulmonic valvular stenosis. No pulmonic valve insufficiency. Great Vessels Normal aortic root. Pericardium/Pleural No pericardial effusion. MMode/2D Measurements & Calculations LVIDd: 5.4 cm IVSd: 1.2 cm Ao root diam: 2.8 cm LVIDs: 3.8 cm LVPWd: 1.2 cm RVDd: 3.1 cm FS: 29.9 % LAV(MOD-bp): 34.0 ml LA A4 area: 13.8 cm2 LA dimension(2D): 3.7 cm LAV(MOD-bp) Indexed: 17.4 ml/m2 LAV(MOD-sp2): 33.1 ml LAV(MOD-sp4): 34.6 ml RA A4 area: 13.4 cm2 Time Measurements MV dec time: 0.22 sec Doppler Measurements & Calculations MV E max zaki: 72.5 cm/sec Lat Peak E' Zaki: 6.3 cm/sec Med Peak E' Zaki: 5.7 cm/sec MV A max zaki: 53.9 cm/sec E/E' lat: 11.5 E/E' med: 12.6 MV E/A: 1.3 Ao V2 max: 106.4 cm/sec LV V1 max: 98.1 cm/sec PA V2 max: 79.5 cm/sec Ao max P.5 mmHg LV V1 max P.9 mmHg TR max zaki: 230.9 cm/sec TR max P.3 mmHg Interpretation Summary The estimated ejection fraction is 40 %. Hypokinesis of the anterior wall and apex Stage 1 diastolic dysfunction. Trivial mitral valve insufficiency. Trivial tricuspid valve insufficiency. Ordering Physician: Cristian Lal Referring Physician: CRISTAL PCP Performed By: Gabby Hughes RDCS, RVT
[2019-04-04] MEDS: Atorvastatin Calcium 80 MG Tablet PO (22:43)
[2019-04-05 03:04] VITALS: PULSE 67
[2019-04-05 03:34] VITALS: BP 100/58; PULSE 75; RESP 20; TEMP 37.1; O2SAT 95
[2019-04-05 05:21] LABS: Hematocrit 41.3 % (40-54); Mean Corp Hgb Conc 33.9 g/dL (32-36); Mean Corpuscular Hgb 30.3 pg (27.0-32.0); Mean Corpuscular Volume 89.4 fL (80-94); Mean Platelet Vol. 10.6 fl (6.2-12.0); Platelet Count 219 K/mm3 (150-450); RBC Distribution Width CV 13.2 % (11.6-14.6); RBC Distribution Width SD 43.2 fl (35.1-43.9); Red Blood Count 4.62 M/mm3 (4.6-6.2); White Blood Count 13.5 K/mm3 (4.4-11.0)
[2019-04-05 07:14] VITALS: PULSE 67
[2019-04-05 07:20] VITALS: O2SAT 96
--- NOTE | 2019-04-05 07:54 | NURSING ---
charge hand sent pic of ekg changes from this am to family practice medical doctor via [employer]
[2019-04-05] MEDS: Aspirin E.C. 81 MG Tablet PO (09:09)
[2019-04-05] MEDS: Enoxaparin 40 MG/0.4 ML Syringe SC (09:52)
[2019-04-05 09:53] VITALS: BP 105/74; PULSE 69
[2019-04-05] MEDS: TICAGRELOR 90 MG TABLET PO (09:53)
[2019-04-05] MEDS: Metoprolol Tartrate 25 MG Tablet PO (09:53)
[2019-04-05] MEDS: Lisinopril 2.5 MG Tablet PO (09:54)
--- NOTE | 2019-04-05 10:00 | EKG12_ITS ---
Test Reason : CHEST PAIN Blood Pressure : / mmHG Vent. Rate : 062 BPM Atrial Rate : 062 BPM P-R Int : 164 ms QRS Dur : 094 ms QT Int : 390 ms P-R-T Axes : 042 058 073 degrees QTc Int : 395 ms Normal sinus rhythm Anterior infarct , age undetermined Abnormal ECG When compared with ECG of 03-APR-2019 10:44, MANUAL COMPARISON REQUIRED, DATA IS UNCONFIRMED Confirmed by SELVIN PERALES ([id number]), proposal editor SONY ROSENTHAL ([id number]) on 04/12/2019 3:41:53 PM Referred By: Cristian Lal Confirmed By:SELVIN PERALES
--- NOTE | 2019-04-05 10:29 | PCM.DC ---
- Discharge Diagnoses Current Active Problems: Current Active and Chronic Problems Presence of stent in coronary artery (Acute) Synergy 3.5 x 24 mm CHUCK to mLAD 04/04/19 Atherosclerosis of coronary artery of [place] heart without angina pectoris (Acute) Synergy 3.5 x 24 mm CHUCK to mLAD 04/04/19 STEMI (ST elevation myocardial infarction) (Acute) ST elevation (STEMI) myocardial infarction involving left anterior descending coronary artery (Acute) You will use the following diet at home:: Cardiac Your food should be the consistency of: Regular Call your doctor if you observe: Shortness of breath, Chest pain Allergies/Adverse Reactions: Allergies No Known Allergies Allergy (Verified 05/04/16 16:35) Medications to take at Discharge Aspirin E.C. [Ecotrin] 81 mg PO DAILY@0800 #90 tab 04/05/19 Atorvastatin Calcium [Lipitor] 80 mg PO QHS #90 tab 04/05/19 Lisinopril [Zestril] 2.5 mg PO DAILY #90 tab 04/05/19 Metoprolol Tartrate [Lopressor (beta nena)] 25 mg PO BID #180 tab 04/05/19 Ticagrelor [Brilinta] 90 mg PO BID #180 tab 04/05/19 The following prescriptions were given: Ticagrelor [Brilinta] 90 mg PO BID #180 tab Transmission Status: Pending to [facility] Aspirin E.C. [Ecotrin] 81 mg PO DAILY@0800 #90 tab Transmission Status: Pending to [email or web address] Atorvastatin Calcium [Lipitor] 80 mg PO QHS #90 tab Transmission Status: Pending to [email or web address] Metoprolol Tartrate [Lopressor (beta nena)] 25 mg PO BID #180 tab Transmission Status: Pending to [email or web address] Lisinopril [Zestril] 2.5 mg PO DAILY #90 tab Transmission Status: Pending to [facility] Primary Care Physician: Care Physician,No Primary [Primary Care Provider] - Please follow up with your Primary Care Physician in: in 5-7 days Test Results: Test results from this visit will be discussed in further detail at your follow-up appointment, if applicable. Please Follow Up With: Cristian Lal MD When: in 2-3 weeks Proposed Discharge Date: 04/05/19
--- NOTE | 2019-04-05 10:32 | PCM.DC.SUM ---
Discharge Date and Diagnosis Date of Admission: 04/03/19 Date of Discharge: 04/05/19 - Primary Discharge Diagnosis Active and Suspected Problems Presence of stent in coronary artery (Acute) Synergy 3.5 x 24 mm CHUCK to mLAD 04/04/19 Atherosclerosis of coronary artery of [place] heart without angina pectoris (Acute) Synergy 3.5 x 24 mm CHUCK to mLAD 04/04/19 STEMI (ST elevation myocardial infarction) (Acute) ST elevation (STEMI) myocardial infarction involving left anterior descending coronary artery (Acute) Hospital Course and Treatment Summary of Care Provided: Patient is a 38-year-old gentleman admitted with chest pain underwent emergency left heart catheterization following diagnosis of acute STEMI 1. Acute ST segment elevation [place]. Patient underwent left heart catheterization which % stenosis in the LAD patient underwent PCI with drug-eluting stent placement. He was also noted to have residual disease in the circumflex and RCA patient is on dual antiplatelet therapy with aspirin as well as Ticagrelor 2. Ischemic cardiomyopathy with ejection fraction of 40%. Patient was discharged home on both the blockers as well as JASON inhibitors with plans for patient to undergo a repeat echo in 3 months 3. Hypertriglyceridemia patient is on statin therapy 4. Elevated blood pressure patient was noted previously known hypertensive however blood pressure remained elevated throughout his stay was discharged on metoprolol and lisinopril 5. DVT prophylaxis Lovenox Objective: GENERAL: cooperative HEENT: Atraumatic; moist oral mucosa EYES; Anicteric, Normal Conjunctiva NECK; supple, normal thyroid, RESPIRATORY: Diminished to auscultation bilaterally, CARDIOVASCULAR: Regular S1 S2, GI: soft, non-tender, normoactive bowel sounds, : No Renal angle tenderness; EXTREMITIES: No edema, no clubbing, MUSCULOSKELETAL: No Joint Tenderness; NEURO: Awake; no lateralizing signs. - Physical Exam Vital Signs Temp Pulse Resp BP Pulse Ox 98.7 F 69 20 H 105/74 96 04/05/19 03:34 04/05/19 09:53 04/05/19 03:34 04/05/19 09:53 04/05/19 07:20 Oxygen Delivery Method Room Air Weight: 82.1 kg Body Mass Index (BMI) 30.2 Intake and Output for Last 24 Hours 04/03/19 04/04/19 04/05/19 23:59 23:59 23:59 Intake Total 1615 / 1615 1690 / 1690 180 / 180 Output Total 400 / 400 875 / 875 Balance 1215 / 1215 815 / 815 180 / 180 Laboratory Tests Past 24 Hrs 04/05/19 05:00 WBC 13.5 H RBC 4.62 Hgb 14.0 Hct 41.3 MCV 89.4 MCH 30.3 MCHC 33.9 RDW Std Deviation 43.2 RDW Coeff of Merlyn 13.2 Plt Count 219 MPV 10.6 Discharge Diet: Low fat/ Low Cholesterol Discharge Activity: Return to Normal Activity Call your doctor if you observe: Shortness of breath, Chest pain Home Medications: Medications to take at Discharge Aspirin E.C. [Ecotrin] 81 mg PO DAILY@0800 #90 tab 04/05/19 Atorvastatin Calcium [Lipitor] 80 mg PO QHS #90 tab 04/05/19 Lisinopril [Zestril] 2.5 mg PO DAILY #90 tab 04/05/19 Metoprolol Tartrate [Lopressor (beta malik)] 25 mg PO BID #180 tab 04/05/19 Ticagrelor [Brilinta] 90 mg PO BID #180 tab 04/05/19 Following Prescrptions Were Given to Patient: Ticagrelor [Brilinta] 90 mg PO BID #180 tab Transmission Status: Received by [facility] Aspirin E.C. [Ecotrin] 81 mg PO DAILY@0800 #90 tab Transmission Status: Received by [facility] Atorvastatin Calcium [Lipitor] 80 mg PO QHS #90 tab Transmission Status: Received by [facility]12 Metoprolol Tartrate [Lopressor (beta malik)] 25 mg PO BID #180 tab Transmission Status: Received by [facility]12 Lisinopril [Zestril] 2.5 mg PO DAILY #90 tab Transmission Status: Received by [facility] Primary Care Physician: Care Physician,No Primary [Primary Care Provider] - Please follow up with your Primary Care Physician in: in 5-7 days Please Follow Up With: Cristian Lal MD When: in 2-3 weeks Disposition: Home Minutes spent on discharge:: 45 Patient Condition:: Stable Medical Necessity - Tobacco Use Smoking Status: Never smoker Meaningful Use Info Meaningful Use Diagnoses (Choose all that apply): AMI - AMI Aspirin given w/in 24hrs of arrival?: Yes ASA at discharge?: Yes Statins at discharge?: Yes Jason/ARB at discharge?: Yes Beta Malik at discharge?: Yes Done w/ Acute [place] measure.: Yes Documented LVEF (%): 40 Code Visit Inpatient E&M: 88587 Disch Hosp
[2019-04-05 13:00] VITALS: BP 101/63; PULSE 79; RESP 16; TEMP 37.1; O2SAT 97
--- NOTE | 2019-04-05 15:30 | PCM.PN.CARD ---
Subjectve: Patient denies any cardiac complaints at this time. Objective: Vital Signs Temp Pulse Resp BP Pulse Ox 98.7 F 79 16 101/63 97 04/05/19 13:00 04/05/19 13:00 04/05/19 13:00 04/05/19 13:00 04/05/19 13:00 Oxygen Delivery Method Room Air Weight: 180 lb 15.992 oz Body Mass Index (BMI) 30.2 Intake and Output for Last 24 Hours 04/03/19 04/04/19 04/05/19 23:59 23:59 23:59 Intake Total 1615 / 1615 1690 / 1690 180 / 180 Output Total 400 / 400 875 / 875 Balance 1215 / 1215 815 / 815 180 / 180 General: Awake, Alert, Oriented x 3 HEENT: PERRL, EOMI, Sclera Non Icteric Neck: Supple, Good ROM, No Lymph Node Enlargement Lungs: Clear to auscultation Cardiovascular: Regular Rhythm, Normal S1, Normal S2, No Murmurs, No Rubs, No Gallops Skin: No Rashes Psych/Mental Status: Appropriate 04/05/19 05:00: WBC 13.5 H, RBC 4.62, Hgb 14.0, Hct 41.3, MCV 89.4, MCH 30.3, MCHC 33.9, Plt Count 219, MPV 10.6 Rhythm: EKG: ECHO: Stress Test: Cardiac Cath: PCI: CT Surgery: Holter monitor: EPS: PPM: CXR: Chest CT Scan: Medical Necessity - Tobacco Use Smoking Status: Never smoker Assessment/Plan 1. Anterior ST elevation [place]: Patient was treated with drug-eluting stent to the LAD. We will keep the patient on aspirin, Brilinta, atorvastatin, metoprolol and lisinopril. If he tolerates the metoprolol and lisinopril, at the time of follow-up office visit. Okay to discharge from a cardiac standpoint. 2. LV dysfunction: In the setting of acute [place]. Patient came fairly quickly after symptom onset. His LV function improved but his EF is still around 40%. We will keep the patient on beta-nena and CARMEN inhibitor. We will repeat the echo in 3 months. As an outpatient we will uptitrate the beta-nena and CARMEN inhibitor as tolerated. 3. Residual coronary artery disease: Patient has residual stenoses in the RCA and circumflex. We will treat these medically at this time.
== END 2019-04-05 13:04 | disposition home or self-care (01) | DRG 247 ==
LOC: ED 09:30 → ICU 09:31 → ED 11:48 → ICU 13:32 → PCU 04-05 10:05 → ICU 04-12 13:23 → PCU 04-12 13:23
PROVIDERS: Admitting Provider Internal Medicine; Emergency Provider Emergency Medicine; Referring Provider Specialist; Visit Provider Internal Medicine
DX: I21.02 ST elevation (STEMI) myocardial infarction involving left anterior descending coronary artery (principal); E78.1 Pure hyperglyceridemia; I25.10 Atherosclerotic heart disease of native coronary artery without angina pectoris; I25.5 Ischemic cardiomyopathy; E66.3 Overweight; Z82.49 Family history of ischemic heart disease and other diseases of the circulatory system; Z68.30 Body mass index [BMI] 30.0-30.9, adult; R03.0 Elevated blood-pressure reading, without diagnosis of hypertension
CPT/HCPCS: 36415; 71045; 80048; 80053; 80061; 84484; 85025; 85027; 85610; 85730; 92941; 93005; 93306; 93458; 99283; J7030; J7040; Q9967; A4216; C1725; C1769; C1874; C1887; C1894; C9606; J1327; J2405

== ENCOUNTER → 2019-04-19 12:57 | Outpatient (CLI) | payer BC, SELFPAY ==
[2019-04-03 10:21] VITALS: BMI 30.2
[2019-04-19 11:14] VITALS: BMI 30.2
--- NOTE | 2019-04-19 13:04 | CR.ITP_ITS ---
General Information - General Information Admitting Diagnosis: PCI with stent - Education/Goals Barriers to Learning: None Cardiac Rehabilitation Goals: 1. Maintain the individual as the primary focus of care. 2. To improve the patient's quality of life. 3. Identification of cardiac risk factors and provide cardiac risk factor management. 4. Enhance the psychosocial status of the patient. 5. Reconditioning enough to allow the patient to resume customary activities. 6. Control symptoms of cardiac disease Scale for measuring improvement of personal goals: Enter appropriate number in Comments. 2 = Unchanged. 3 = Slightly Better. 4 = Moderate Improvement. 5 = Met my Goal Personal Goals: Initial Assessment: Improve muscle strength and endurance Exercise - Initial Assessment - Visit Date of Eval: 04/19/19 - initial eval - Stages of Change Stages of Change:: Contemplate - Physician Prescribed Exercise Modalities: Treadmill, Biodyne, Rower, Airdyne, NuStep, SciFit Frequency (days/week): 3x/week for 12 weeks [36 sessions] Duration (Minutes):: 30-45 min Intensity: 60-80% age predicted maximum heart rate reserve METs - Progression: 0.5-1.0 MET, RPE 11-14 WEEK: 2.5 mets Target Heart Rate:: 116-152 - Hypertension Do any of the following apply?: Yes Resting Blood Pressure:: 100/64 - Intervention Home Exercise/Activity Goal:: Sitting Time <3 hrs/day - Education Goals:: Warm-up, RPE GARIMA Scale, S/S, Safe Exercise, Self-Monitoring - Exercise Program Goals Exercise Program Goals: Aerobic Activity >30 min, B/P <130/80 Nutrition - Initial Assessment - Program Goals Nutrition Program Goals: LDL <70. Total Cholesterol <200. HDL >45. Triglycerides <150. HgbA1C <7%. BMI <25 - Visit Date of Assessment:: 04/19/19 - Stages of Change Stages of Change:: Contemplate - Diabetes Diabetes:: No - Weight Management Total Score:: 3 - Intervention Referral to dietitian:: No Referral to Diabetic Clinic:: No Will attend diet classes:: Yes - Education Gave educational materials for:: Signs & symptoms of hypoglycemia, Signs & symptoms of hyperglycemia, Relate diabetes to coronary artery disease, Healthy eating Tobacco - Initial Assessment - Program Goals Tobacco Program Goals: Complete smoking cessation. Attend education classes. Improve Knowledge Test score - Stage of Change Stages of Change:: Contemplate - Learning Barriers Total Score:: 13 - Family Support Do you have family support?: Yes - Tobacco Use Tobacco Use: Non-smoker Do you use smokeless tobacco?: No - Intervention Smoking Cessation Referral:: No Individual Education/Counseling:: No Education Schedule Given:: Yes - Education Attended class for:: Treating Heart Disease, How The Heart Works, What it means to have Heart Disease, How Coronary Artery Disease is Diagnosed, Heart Procedures, What Heart Medications Do, Risk Factors & Modifications, Living an Active Life, Nutrition, Emotions & Heart Disease, Stress Management & Relaxation, Sleep Disorders & Heart Disease Psychosocial - Initial Assess - Target Goals Target Goals: Assess presence or absence of depression. Using a valid screening tool, maximizes coping skills. Positive support system - Stages of Change Stages of Change:: Contemplate - Psychosocial Test Tool Used:: HANDS Depression Questionnaire Total Mood Screening Score:: 9 Self-Efficacy Score:: 1 - Intervention PS - Interventions: Yes Attend Stress Management Classes, Yes Uses Stress Management Skills, No Referral to Mental Health, No Referral to [facility] Case Management, No Referral to Physician - Education Gave educational materials for:: Coping techniques, Signs & symptoms of depression, Stress management, Relaxation techniques - Assistive Devices Assistive Devices:: None Fall Risk Assessed:: Yes Patient Health Questionnaire Initial Assessment 1. Little interest or pleasure in doing things: Not at all 2. Feeling down, depressed, or hopeless: Not at all 3. Trouble falling or staying asleep, or sleeping too much: Not at all 4. Feeling tired or having little energy: Not at all 5. Poor appetite or overeating: Not at all 6. Feeling bad about yourself -- or that you are a failure or have let yourself or your family down: Not at all 7. Trouble concentrating on things, such as reading the newspaper or watching television: Not at all 8. Moving or speaking so slowly that other people could have noticed. Or the opposite - being so fidgety or restless that you have been moving around a lot more than usual: Not at all 9. Thoughts that you would be better off , or of hurting yourself in some way: Several days How difficult have these problems made it for you to do your work, take care of things at home, or get along with other people?: Not difficult at all - thoughts were for 2 days after pt came home from the hospital. Much better now. counseling contacs given Total Score: 1 LEA-Q SV Test - Statements CAD is a disease of the arteries in the heart: False Examples of risk factors for heart disease: True Angina is chest pain or discomfort: I Don't Know The benefits of resistance training include: True Eating more meat and dairy products: False Anti-platelet medications such as aspirin are important: True The only effective way to manage stress: False An exercise warm-up slowly increases heart rate: I Don't Know Prepared, processed foods usually have high sodium: True Depression is common after a heart attack: True The statin medications lower cholesterol: I Don't Know To control blood pressure, lower the amount of sodium: I Don't Know If someone gets chest discomfort during walking: False Transfats are partially hydrogenated vegetable oils: True Sleep apnea that is not treated increases the risk: I Don't Know To control cholesterol, one should become a vegetarian: False Someone knows if he/she is exercising at the right level: False Diabetes cannot be prevented with exercise & health eating: False Stress is a large risk for heart attack: I Don't Know A diet that can help lower blood pressure is rich in: True - Total Score Total Correct Responses: 13 Self-Efficacy Initial Assessment We would like to know how confident you are in doing certain activities. Please select your confidence level for:: Select your confidence level for the following using the scale 1-10 where 1 is not at all confident and 10 is totally confident. Your score is the average of all 6 responses. Fatigue: How confident are you that you can keep the fatigue caused by your disease from interfering with the things you want to do? Select Number: 9 Physical Discomfort or Pain: How confident are you that you can keep the physical discomfort or pain of your disease from interfering with the things you want to do? Select Number: 9 Emotional Distress: How confident are you that you can keep the emotional distress caused by your disease from interfering with the things you want to do? Select Number: 10 Other Symptoms or Health Problems: How confident are you that you can keep other symptoms or health problems from interfering with the things you want to do? Select Number: 9 Different Tasks and Activities: How confident are you that you can do the different tasks and activities needed to manage your health condition so as to reduce your need to see a doctor? Select Number: 9 Medication: How confident are you that you can do things other than just taking medication to reduce how much your illness affects your everyday life? Select Number: 9 Total Score:: 9 Nutrition Survey - Nutrition Survey Instructions Scoring Instructions: Scoring is as follows: Yes = 1 points. No = 0 point. Patient score that is >/=12 is considered to be at potential nutritional risk and could benefit from a referral to a registered dietitian. - Nutrition Survey Initial Have you lost >10 lbs over the past 2 months without trying?: No Are you following a special diet at home for diabetes, low fat, or low salt?: No Are you interested in meeting with a dietitian for help understanding your diet?: No Do you eat less than 3 meals a day?: Yes Do you eat fatty meats (obrien, sausage, ribs, etc), fried foods, desserts, large amounts of salad dressings, margarine, butter, or cheese most days?: No Do you have food allergies? [Enter types in comment field]: No Do you eat in restaurants more than 3 times a week?: No Do you season food with salt, seasoning salt, or garlic salt?: Yes Do you used canned, boxed, frozen meals, or soups, seasoning packets?: Yes Total Score:: 3
--- NOTE | 2019-04-19 13:04 | PCM.CR.HP2 ---
CR - History & Physical - General Arrival date:: 04/19/19 Arrival time:: 13:05 Date of Referral:: 04/03/19 Date of CR Evaluation:: 04/19/19 Referring Physician: Dr. Riley Lal Primary Diagnosis: Z95.5 PCI with stent - History of Present Cardiac Event Onset Date: Enter Onset Date of cardiac illnesses in Comment field below Acute Myocardial Infarction within 12 months:: Yes PTCA or coronary stenting:: Yes Type of Symptoms:: CP, STEMI Interventions with present event:: PCI with stent 04/03/2019 - Medications Home Medications: Ambulatory Orders Medication Instructions Recorded Aspirin E.C. [Ecotrin] 81 mg PO DAILY@0800 #90 tab 04/05/19 Atorvastatin Calcium [Lipitor] 80 mg PO QHS #90 tab 04/05/19 Lisinopril [Zestril] 2.5 mg PO DAILY #90 tab 04/05/19 Ticagrelor [Brilinta] 90 mg PO BID #180 tab 04/05/19 metoprolol succinate ER 50 mg 50 mg PO DAILY #30 ea 04/19/19 capsule sprinkle, ext. release 24 hr - Allergies Allergies/Adverse Reactions: Allergies No Known Allergies Allergy (Verified 04/19/19 11:08) - Sleep Disorder Evaluation Hx of Sleep Apnea: No Do you snore loudly (louder than talking or can be heard through closed doors)?: Yes - pt declines Do you often feel tired/ fatigued/ sleepy during daytime?: No Has anyone observed you stop breathing during sleep?: No History of Hypertension (for STOP score): Yes STOP Results: Positive Advanced Directives - Advanced Directives Power of Director Of Nursing: No Living Will: Yes Advance Directives Information Provided: No Advance Directives on File: No DNR Order?:: No Past Medical History - Past Medical Illness Medical History: Past Medical History (Last Reviewed 04/19/19 @ 12:19 by Cristian Lal MD) Atherosclerosis of coronary artery of [place] heart without angina pectoris (Acute) I25.10 Synergy 3.5 x 24 mm CHUCK to mLAD 04/04/19 STEMI (ST elevation myocardial infarction) (Acute) I21.3 ST elevation (STEMI) myocardial infarction involving left anterior descending coronary artery (Acute) I21.02 - Past Surgical History Surgical History: Past Surgical History (Last Reviewed 04/19/19 @ 12:19 by Cristian Lal MD) Presence of stent in coronary artery (Acute) Z95.5 Synergy 3.5 x 24 mm CHUCK to mLAD 04/04/19 - Family History Summary Family History: Family History (Last Reviewed 04/19/19 @ 12:19 by Cristian Lal MD) Mother Myocardial infarction Social History - Smoking History Smoking Status: Never smoker - Alcohol Use Alcohol Usage: No - Substance Abuse Hx Substance Use: No - Occupation Occupation (List type of work in comments):: Employed Hours worked per day:: 10 Returned to work on:: 04/10/19 - Hobbies, Recreation, Social Activities Hobbies: Sports Recreational Activities: I am able to engage in all my recreational activities Social Environment - Status Marital Status: - Current Living Arrangements Living Environment:: Spouse - Children How many children do you have?: 2 Do any of your children live nearby?: Yes - Safety Do you feel safe in your surroundings?: Yes - Assistance Do you need any assistance at home?: none Review of Systems - Review of Systems Hints: Right click = Denies ([place]). Left click = Reports ([place]) Review of Present Symptoms: Reports: Angina, Appetite - Normal, Appetite - Special Diet, Sleep - Normal. Denies: Shortness of Breath at Rest, Shortness of Breath with Exertion, PVD, Operative Discomfort, Wound Healing, Dizziness/Lightheadedness, Fatigue, Heart Arrhythmia/Irregularities, Sexual Changes - Pain Is Patient Pain Free?: Yes Pain Location: none Risk Factor Assessment - Chief Complaint Chief Complaint: PCI with stent - Vital Signs Pulse Ox: 98 - Pulse Pulse Rate: 63 Pulse Rhythm: Regular - Hypertension How long have you been treated?: 04/03/2019 Blood Pressure Sitting - Left Arm: 100/64 - Diabetes Nutrition Referral for Diabetes: No - Obesity Height: 1.73 m Weight:: 81.647 kg Weight in Pounds: 180.0 lbs Body Mass Index (BMI): 27.3 Nutritional Referral for Obesity: No - Physical Inactivity Physical Inactivity: Reg Exercise 30 min/day, Recreational activity - Risk Stratification Risk Guidelines: Lowest Risk: Risk Factor for Smoking, Moderate Risk: Risk Factor for Smoking, Risk Factor for Dyslipidemia, Risk Factor for Diabetes, Risk Factor for Obesity, Risk Factor for Hypertension, Risk Factor for Sedentary Lifestyle, Risk Factor for Depression - For Smoking Smoking Risk Guidelines: Smoking Low Risk: None or quit greater than 6 months ago. Smoking Moderate Risk: Smoker or quit 6 months or less ago. Smoking High Risk: Smoker - For Dyslipidemia Dyslipidemia Risk Guidelines: Low Risk: Moderate Risk: High Risk: 15-25% fat 25.1-29% fat >/= 30% fat. <7% sat fat 7-9% sat fat >9% sat fat. <150 mg chol 150-299 mg chol >/= 300 mg chol. LDL <100 LDL 100-129 LDL >/= 130. Chol/HDL ratio <5.0 Chol/HDL ratio 5.0-6.0 Chol/HDL ratio >6.0. Triglycerides <100 Triglycerides 100-149 Triglycerides >/= 150 - For Diabetes Mellitus Diabetes Risk Guidelines: Diabetes Low Risk: HgA1c <6.5% and/or FBG <120. Diabetes Moderate Risk: HgA1c 6.6-7.9% and/or FBG 120-180. Diabetes High Risk: HgA1c >/= 8% and/or FBG >180 - For Obesity/Overweight Obesity/Overweight Risk Guidelines: Obesity Low Risk: BMI <25.0. Obesity Moderate Risk: BMI 25-29.9. Obesity High Risk: BMI >/= 30.0 - For Hypertension Hypertension Risk Guidelines: Hypertension Low Risk: Systolic <120 and Diastolic <80. Hypertension Moderate Risk: Systolic 120-139 and Diastolic 80-89. Hypertension High Risk: Systolic >/= 140 and Diastolic >/= 90 - For Sedentary Lifestyle Sedentary Lifestyle Risk Guidelines: Sedentary Lifestyle Low Risk: >/= 1,500 kcal/week. Sedentary Lifestyle Moderate Risk: 700-1,499 kcal/week. Sedentary Lifestyle High Risk: < 700 kcal/week - For Depression Depression Risk Guidelines: Depression Low Risk: Not clinically depressed. Depression Moderate Risk: Mildly depressed. Depression High Risk: Clinically depressed - Family History Family History: Family History (Last Reviewed 04/19/19 @ 12:19 by Cristian Lal MD) Mother Myocardial infarction Motivation - Motivation to Participate On a scale of 1 to 10, how prepared are you to commit to attending program?: 10 What do you see as barriers to successfully being able to complete the program?: none What do you see as the benefits of succesfully completing the program? In other words, what do you hope to get out of participating in the program?: improved health Are there issues you are dealing with that will interfere with completing the program?: none Do you have a spouse or signficant other, family or friends who will help support you to complete the program?: spouse
[2019-04-19 14:11] VITALS: BP 100/64; PULSE 63; O2SAT 98; BMI 27.3
== END ==
PROVIDERS: Referring Provider Specialist; Visit Provider Specialist
DX: I25.10 Atherosclerotic heart disease of native coronary artery without angina pectoris (principal); Z95.5 Presence of coronary angioplasty implant and graft

== ENCOUNTER 2019-05-01 13:00 | Outpatient (RCR) | payer BC, SELFPAY ==
[2019-04-19 14:11] VITALS: BMI 27.3
== END 2019-05-06 23:59 ==
LOC: CR 13:00
PROVIDERS: Referring Provider Specialist; Visit Provider Specialist
DX: I25.10 Atherosclerotic heart disease of native coronary artery without angina pectoris (principal); I21.3 ST elevation (STEMI) myocardial infarction of unspecified site; Z95.5 Presence of coronary angioplasty implant and graft
CPT/HCPCS: 93798

== ENCOUNTER 2019-05-19 13:00 | Outpatient (RCR) | payer BC, SELFPAY ==
[2019-04-03 12:06] VITALS: BMI 27.3
[2019-04-19 14:11] VITALS: BMI 27.3
--- NOTE | 2019-05-19 08:32 | PCM.CR.ITP ---
General Information - General Information Admitting Diagnosis: PCI with stent - Education/Goals Barriers to Learning: None Cardiac Rehabilitation Goals: 1. Maintain the individual as the primary focus of care. 2. To improve the patient's quality of life. 3. Identification of cardiac risk factors and provide cardiac risk factor management. 4. Enhance the psychosocial status of the patient. 5. Reconditioning enough to allow the patient to resume customary activities. 6. Control symptoms of cardiac disease Scale for measuring improvement of personal goals: Enter appropriate number in Comments. 2 = Unchanged. 3 = Slightly Better. 4 = Moderate Improvement. 5 = Met my Goal Exercise - 30-day Assessment - Visit Date of Eval: 05/19/19 Session #:: 6 - pt is unsure if he is going to continue rehab - Stages of Change Stages of Change:: Action - Physician Prescribed Exercise Modalities: Treadmill, Rower, Airdyne Frequency (days/week): 3 Duration (Minutes):: 30-45 Intensity: 60-80% age predicted maximum heart rate reserve METs - Progression: 0.5-1.0 MET, RPE 11-14 WEEK: 6.5 Target Heart Rate:: 116-152 Max HR 145 - Hypertension Resting Blood Pressure:: 112/66 Peak Exercise Blood Pressure:: 136/60 - Intervention Home Exercise/Activity Goal:: Sitting Time <3 hrs/day - Education Goals:: Warm-up, RPE GARIMA Scale, S/S, Safe Exercise, Self-Monitoring - Exercise Program Goals Exercise Program Goals: Aerobic Activity >30 min, B/P <130/80 Nutrition - 30-Day Assessment - Program Goals Nutrition Program Goals: LDL <70. Total Cholesterol <200. HDL >45. Triglycerides <150. HgbA1C <7%. BMI <25 - Visit Date of Eval: 05/19/19 - Stages of Change Stages of Change:: Action - Lipids Has the patient seen the dietitian?: No - Diabetes Diabetes:: No - Weight Management Weight:: 79.379 kg - Intervention Referral to dietitian:: No Referral to Diabetic Clinic:: No Will attend diet classes:: Yes - Education Attended class for:: Signs & symptoms of hypoglycemia, Signs & symptoms of hyperglycemia, Relate diabetes to coronary artery disease, Healthy eating Tobacco - 30-Day Assessment - Program Goals Tobacco Program Goals: Complete smoking cessation. Attend education classes. Improve Knowledge Test score - Stage of Change Stages of Change:: Action - Learning Barriers Learning Barriers: Participates in education - Family Support Do you have family support?: Yes - Tobacco Use Tobacco Use: Non-smoker Do you use smokeless tobacco?: No - Intervention Smoking Cessation Referral:: No Individual Education/Counseling:: No Education Schedule Given:: Yes - Education Attended class for:: Treating Heart Disease, How The Heart Works, What it means to have Heart Disease, How Coronary Artery Disease is Diagnosed, Heart Procedures, What Heart Medications Do, Risk Factors & Modifications, Living an Active Life, Nutrition, Emotions & Heart Disease, Stress Management & Relaxation, Sleep Disorders & Heart Disease Psychosocial - Initial Assess - Target Goals Target Goals: Assess presence or absence of depression. Using a valid screening tool, maximizes coping skills. Positive support system - Psychosocial Test Tool Used:: HANDS Depression Questionnaire - Assistive Devices Fall Risk Assessed:: Yes Psychosocial - 30-Day Assess - Target Goals Target Goals: Assess presence or absence of depression. Using a valid screening tool, maximizes coping skills. Positive support system - Stages of Change Stages of Change:: Action - Psychosocial Test Tool Used:: HANDS Depression Questionnaire - Intervention PS - Interventions: Yes Attend Stress Management Classes, Yes Uses Stress Management Skills, No Referral to Mental Health, No Referral to [facility] Case Management, No Referral to Physician - Education Attended classes for:: Coping techniques, Signs & symptoms of depression, Stress management, Relaxation techniques - Assistive Devices Assistive Devices:: None Fall Risk Assessed:: Yes Patient Health Questionnaire 30-Day Re-eval Assessment 1. Little interest or pleasure in doing things: Not at all 2. Feeling down, depressed, or hopeless: Not at all 3. Trouble falling or staying asleep, or sleeping too much: Not at all 4. Feeling tired or having little energy: Not at all 5. Poor appetite or overeating: Not at all 6. Feeling bad about yourself -- or that you are a failure or have let yourself or your family down: Not at all 7. Trouble concentrating on things, such as reading the newspaper or watching television: Not at all 8. Moving or speaking so slowly that other people could have noticed. Or the opposite - being so fidgety or restless that you have been moving around a lot more than usual: Not at all 9. Thoughts that you would be better off , or of hurting yourself in some way: Not at all How difficult have these problems made it for you to do your work, take care of things at home, or get along with other people?: Not difficult at all Total Score: 0 Self-Efficacy 30-Day Re-eval Assessment We would like to know how confident you are in doing certain activities. Please select your confidence level for:: Select your confidence level for the following using the scale 1-10 where 1 is not at all confident and 10 is totally confident. Your score is the average of all 6 responses. Fatigue: How confident are you that you can keep the fatigue caused by your disease from interfering with the things you want to do? Select Number: 9 Physical Discomfort or Pain: How confident are you that you can keep the physical discomfort or pain of your disease from interfering with the things you want to do? Select Number: 9 Emotional Distress: How confident are you that you can keep the emotional distress caused by your disease from interfering with the things you want to do? Select Number: 10 Other Symptoms or Health Problems: How confident are you that you can keep other symptoms or health problems from interfering with the things you want to do? Select Number: 9 Different Tasks and Activities: How confident are you that you can do the different tasks and activities needed to manage your health condition so as to reduce your need to see a doctor? Select Number: 9 Medication: How confident are you that you can do things other than just taking medication to reduce how much your illness affects your everyday life? Select Number: 9 Total Score:: 9
[2019-05-19 08:37] VITALS: BP 112/66; BP 136/60
== END 2019-06-05 23:59 ==
LOC: CR 13:00
PROVIDERS: Referring Provider Specialist; Visit Provider Specialist
DX: I25.10 Atherosclerotic heart disease of native coronary artery without angina pectoris (principal); I21.3 ST elevation (STEMI) myocardial infarction of unspecified site; Z95.5 Presence of coronary angioplasty implant and graft
CPT/HCPCS: 93798

== ENCOUNTER → 2019-05-29 12:58 | Outpatient (CLI) | payer BC, SELFPAY ==
[2019-05-29 12:52] VITALS: BMI 27.3
--- NOTE | 2019-05-29 13:00 | RAD_ITS ---
STUDY: X-RAY - RIGHT KNEE REASON FOR EXAM: Male, 39 years old. Knee pain no trauma TECHNIQUE: 3 view(s) of the knee. COMPARISON: None. FINDINGS: Normal visualized distal femur. Normal visualized proximal tibia and fibula. Normal proximal tibiofibular articulation. Normal medial femorotibial compartment. Normal lateral femorotibial compartment. Normal patellofemoral articulation. The soft tissue structures are unremarkable. RAD/Knee 4 or More Views IMPRESSION: Normal x-ray examination of the knee. Electronically Signed: Bill Pelletier, at 18:41 EDT Tel , Service support ,
== END ==
PROVIDERS: Referring Provider Physician Assistant; Visit Provider Physician Assistant
DX: M25.561 Pain in right knee (principal)
CPT/HCPCS: 73564

== ENCOUNTER 2019-07-05 10:00 | Outpatient (RCR) | payer BC, SELFPAY ==
[2019-05-29 12:52] VITALS: BMI 27.3
--- NOTE | 2019-06-19 08:05 | HP.PTEVAL_ITS ---
Patient's Visit Information GUNNAR ALLEN is a 39 year old M referred to Physical Therapy by TRI Aaron with a diagnosis of R knee pain. Date of Evaluation: 06/12/19 Physical Therapist: Emmett Chaudhary DPT - Visit Plan Frequency: 1-2x /Week Duration: 4-6 Weeks Plan: Start with quad/glute/HS strengthening. Add in quad stretching, TFL stretching. Progress HEP as able. - Subjective Findings: Pt. 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 Pt. reports having pain for years, but recently remodeled his home and had resultant issues. Pt. denies no mechanism of injury, no N/T. PT. reports having xrays which were normal. No MRI. PT. did recently have an injection with good results. Pt. reports no pain currently. He recently, this year, start running more refereeing soccer games. His symptoms are better since injection. Pt. denies weakness, no locking and no giving out. Pt. is hopeful to reduce symptoms in order to run, jump, and complete all exercises without increase in symptoms. - Pain R knee Pain Intensity (Out of 10): 0 Pain Intensity Range: 0, 9 - Objective POSTURE: Pt. has normal posture in stance. Normal foot positioning, normal knee positioning. PALPATION: Pt. has slight tenderness along medial joint line and along medial aspect of patella, slight pain at patellar tendon. NEURO: normal sensation, normal DTR bilaterally. ROM: Pt. has full B ROM without increase in symptoms. Normal HS length, slight tightness noted in quad. MMT: Pt. has 5/5 strength throughout bilateral LEs, except hip extension 4+/5, hip abd 4+/5, HS 5-/5 Bilatearlly. GAIT: Pt. has normal gait pattern without antalgic pattern. Pt. reports no pain this date with waking. STAIRS: No pain with reciprocal pattern. SQUAT: slight anterior knee translation, no valgus deformity noted. - Special Tests R Knee Rigoberto - Meniscus: Negative R Knee Disco Test - Meniscus: Negative R Knee Tammy - ACL: Negative R Knee Posterior Drawer - PCL: Negative R Knee Valgus - MCL: Negative R Knee Patellar Apprehension - PFS: Negative R Knee Patellar Grind - PFS: Positive - Goals Goal 1:: Pt. to be I with HEP. Goal Time Frame: 4-6 Weeks Goal 2:: Pt. to have increased RLE strength by 1/2 grade of all effected muscu lature. Goal Time Frame: 4-6 Weeks Goal 3:: Pt. to run without increase in symptoms. Goal Time Frame: 4-6 Weeks Goal 4:: Pt. to have improved squat mechanics without increase in symptoms. Goal Time Frame: 4-6 Weeks Goal 5:: Pt. to complete all referreing without increase in symptoms. Goal Time Frame: 4-6 Weeks - Rehabilitation Potential Physical Therapy Diagnosis: Pt. has signs and symptoms consistent with R PFS. Pt. has no ligament laxity, no positive signs of meniscal involvement this date. Pt. would benefit from PT for exercises to increase stability of R knee and increase quad/glute med strengthening. Rehabilitation Potential: Excellent - Anticipated Interventions Patient/Client Instruction: Educate patient on: Condition, Plan of Care, Risk Factors, Benefits of Fitness Program For the Purpose of:: To improve decision making, To facilitate caregiver knowledge, To improve self management, To prevent re-injury, To improve ability to perform tasks related to life management, To improve tolerance to ADL's Therapeutic Exercise to Include: Strength training, Power training, Endurance training, Postural training, Flexibilty training, Active ROM, Dynamic Lumbar Stabilization For the Purpose of:: To decrease pain, To decrease swelling/inflammation, To increase ROM, To improve nutrient delivery to tissue, To improve muscle performance and motor function, To improve ability to perform ADL's, To increase tolerance to activity/condition/position, To improve performance and independence with ADL's, To improve ability of physical actions for home/community/work/leisure Thank you for the opportunity to evaluate your patient. For Medicare and Medicare HMO plans, please review the plan of care and approve it. It will need to be FAXED BACK to us at [phone] for Medicare purposes. For Medicare only, by signing this I certify the plan of care. Please let me know if there are questions or concerns regarding this plan of care. Physician Signature: Date:
--- NOTE | 2020-01-05 08:52 | HP.PT.NRP ---
GUNNAR ALLEN was seen in my office for initial evaluation on 06/12/19. The following Plan of Care was established for this patient: Initial Frequency: 1-2x /Week Initial Duration: 4-6 Weeks Patient/Client Instruction: Educate patient on: Condition, Plan of Care, Risk Factors, Benefits of Fitness Program For the Purpose of:: To improve decision making, To facilitate caregiver knowledge, To improve self management, To prevent re-injury, To improve ability to perform tasks related to life management, To improve tolerance to ADL's Therapeutic Exercise to Include: Strength training, Power training, Endurance training, Postural training, Flexibilty training, Active ROM, Dynamic Lumbar Stabilization For the Purpose of:: To decrease pain, To decrease swelling/inflammation, To increase ROM, To improve nutrient delivery to tissue, To improve muscle performance and motor function, To improve ability to perform ADL's, To increase tolerance to activity/condition/position, To improve performance and independence with ADL's, To improve ability of physical actions for home/community/work/leisure This patient was last seen in our office 07/05/19. Pertinent comments regarding their Physical therapy will appear below: Pt. was treated for his knee pain. Pt. did well with strengthening and stretching. Pt. did not come to his last appointment and has not been seen in several months. Pt. will be DC from PT at this point in time. At this point I will be discontinuing this patient from physical therapy. I would be happy to see this patient again in the future if found appropriate by the physician. Thank you! Emmett Chaudhary DPT
== END 2019-07-05 19:00 | disposition home or self-care (01) ==
LOC: PT 10:00
PROVIDERS: Referring Provider Physician Assistant; Visit Provider Physician Assistant
DX: M22.2X1 Patellofemoral disorders, right knee (principal)
CPT/HCPCS: 97110; 97161

== ENCOUNTER → 2019-07-20 08:05 | Outpatient (CLI) | payer BC, SELFPAY ==
[2019-04-03 12:06] VITALS: BMI 27.3
[2019-05-29 12:52] VITALS: BMI 27.3
--- NOTE | 2019-07-20 08:06 | ECHOL_ITS ---
Reason For Study: LV FUNCTION Procedure This was a limited 2D transthoracic echocardiogram. Myocardial strain analysis was performed in this exam to aid in the assessment of cardiac function. Exam performed in department. Left Ventricle Normal LV size. The estimated ejection fraction is 45-50 %. [place] : Hypokinetic. Septal [place] : Hypokinetic. Right Ventricle Normal RV size. Normal systolic function. Atria Normal left atrium. Normal right atrium. No doppler evidence for ASD. Mitral Valve There is no stenosis. Tricuspid Valve There is no tricuspid stenosis. Unable to estimate RV systolic pressure due to insufficient tricuspid regurgitant envelope. No tricuspid valve insufficiency. Aortic Valve Trisinus/trileaflet aortic valve. Great Vessels Normal aortic root. Pericardium/Pleural No pericardial effusion. MMode/2D Measurements & Calculations LVIDd: 4.9 cm IVSd: 0.99 cm Ao root diam: 3.0 cm LVIDs: 3.2 cm LVPWd: 0.98 cm FS: 36.2 % LAV(MOD-bp): 21.6 ml LA A4 area: 10.1 cm2 LA dimension(2D): 3.4 cm LAV(MOD-bp) Indexed: 11.6 ml/m2 LAV(MOD-sp2): 22.0 ml LAV(MOD-sp4): 20.2 ml RA A4 area: 8.7 cm2 Interpretation Summary Limited views were obtained. The estimated ejection fraction is 45-50 %. [place] : Hypokinetic. Septal [place] : Hypokinetic Limited views were obtained. Ordering Physician: Cristian Lal Referring Physician: Cristian Lal Performed By: Debi Meléndez, TOM, RVT
== END ==
PROVIDERS: Referring Provider Specialist; Visit Provider Specialist
DX: I25.2 Old myocardial infarction (principal)
CPT/HCPCS: 93308

== ENCOUNTER → 2020-02-20 10:22 | Outpatient (CLI) | payer SELFPAY ==
[2019-08-16 10:36] VITALS: BMI 26.9
[2020-02-20 11:28] LABS: ALB/GLOB Ratio 1.3 RATIO (0.9-2.4); AST(SGOT) 59 U/L (15-37); Alanine Aminotransfer ALT/SGPT 131 U/L (16-61); Albumin, Serum 3.9 g/dL (3.2-5.0); Alkaline Phosphatase 87 U/L (45-117); Anion Gap 6 (5-15); BUN 15 mg/dL (7-18); BUN/Creat Ratio 12.7 RATIO (10-20); Calcium,Total 8.7 mg/dL (8.5-10.1); Chloride 106 mmol/L (98-107); Cholesterol 125 mg/dL (200); Creatinine, Serum 1.18 mg/dL (0.70-1.30); EST Glomerular Filtration Rate 72 mL/min (>60); Est Glom Filt Rate - Afr Amer 87 mL/min (>60); Globulin 3.1 g/dL (2.2-4.2); Glucose 91 mg/dL (74-106); High Density Lipoprotein 30 mg/dL; Potassium 4.3 mmol/L (3.5-5.1); Sodium Level 140 mmol/L (136-145); Triglycerides 213 mg/dL; Very Low Density Lipoprotein 43 mg/dL (5-40)
[2020-02-22 01:09] LABS: Lipoprotein A 203.3 nmol/L (<75.0)
== END ==
PROVIDERS: Referring Provider Specialist; Visit Provider Specialist
DX: I25.10 Atherosclerotic heart disease of native coronary artery without angina pectoris (principal); E78.00 Pure hypercholesterolemia, unspecified; I25.2 Old myocardial infarction; Z95.5 Presence of coronary angioplasty implant and graft
CPT/HCPCS: 36415; 80053; 80061; 83695

== ENCOUNTER 2020-08-13 19:49 | Emergency (ER) | payer BC, SELFPAY ==
[2020-02-27 11:40] VITALS: BMI 26.9
[2020-08-13 19:50] VITALS: BP 140/86; PULSE 62; RESP 15; TEMP 35.8; O2SAT 100; BMI 29.0
[2020-08-13 19:52] VITALS: BP 140/86; PULSE 62; RESP 15; TEMP 35.8; O2SAT 100
[2020-08-13 20:18] LABS: Absolute Lymphocyte Count 2.32 X10^3/uL (0.83-4.51); Absolute Neutrophil Count 12.6 X10^3/uL (2.0-7.7); Basophil# 0.06 X10^3/uL; Basophil% 0.4 % (0-1); Eosinophil# 0.11 X10^3/uL; Eosinophils% 0.7 % (0-5); Hematocrit 47.1 % (40-54); Hemoglobin 16.1 g/dL (13.0-16.5); Lymphocyte # 2.32 X10^3/ul (4.0); Lymphocyte % 14.5 % (19-41); Mean Corp Hgb Conc 34.2 g/dL (32-36); Mean Corpuscular Hgb 29.7 pg (27.0-32.0); Mean Corpuscular Volume 86.9 fL (80-94); Mean Platelet Vol. 10.7 fl (6.2-12.0); Monocyte# 0.93 X10^3/uL; Monocyte% 5.8 % (0-10); NRBC Flagged by Analyzer 0 % (0-5); Neutrophil # 12.56 X10^3/uL (2.7-7.7); Neutrophil % 78.2 % (47-70); Platelet Count 330 K/mm3 (150-450); RBC Distribution Width CV 12.4 % (11.6-14.6); RBC Distribution Width SD 39.2 fl (35.1-43.9); Red Blood Count 5.42 M/mm3 (4.6-6.2)
--- NOTE | 2020-08-13 21:17 | CT_ITS ---
STUDY: CT ABDOMEN AND PELVIS WITHOUT CONTRAST REASON FOR EXAM: Male, 40 years old. RLQ PAIN X 3 HOURS, VOMITING X 2,ELEVATED WBC -- HX:HEART STENTS RADIATION DOSAGE (If Supplied By Facility): CTDIvol = ( 9.14 ) mGy, DLP = ( 504.63 ) mGycm TECHNIQUE: Transaxial images were obtained from the dome of the diaphragm to the symphysis pubis without oral contrast, and without intravenous contrast. Sagittal and coronal images were reconstructed. Individualized dose optimization techniques were used for this CT. COMPARISON: None. FINDINGS: Mild right hydronephrosis and hydroureter are present due to passage of a tiny 1 mm stone which is now in the right distal ureter near the UVJ see image #[id number] series 2. No additional visualized radiopaque stones of the right kidney. Normal left kidney. The visualized lung bases are unremarkable. The visualized portions of the heart are within normal limits. Normal liver. Normal gallbladder and extrahepatic biliary system. Normal spleen. Normal pancreas. Normal bilateral adrenal glands. No free air or free fluid or bowel dilatation or evidence of obstruction. Normal visualized stomach. Normal small intestine. Normal colon. The appendix is visualized and appears normal. Normal abdominal aorta. Normal inferior vena cava. Normal retroperitoneum. Normal urinary bladder. Normal abdominal wall. Normal osseous structures. CT/Abdomen/Pelvis without Cont IMPRESSION: 1. Mild right hydronephrosis and hydroureter are present due to passage of a tiny 1 mm stone which is now in the right distal ureter near the UVJ see image #[id number] series 2. No additional visualized radiopaque stones of the right kidney. Normal left kidney. Electronically Signed: Jesu Pratt MD at 22:22 EST , Service support ,
[2020-08-13] MEDS: Morphine 4 MG/ML Syringe IV (21:31)
[2020-08-13] MEDS: 0.9% Normal Saline 1,000 ML 1000 ML IV (21:31)
[2020-08-13] MEDS: Ondansetron 4 MG/2 ML Vial IV (21:31)
[2020-08-13 21:58] LABS: ALB/GLOB Ratio 1.3 RATIO (0.9-2.4); AST(SGOT) 38 U/L (15-37); Alanine Aminotransfer ALT/SGPT 69 U/L (16-61); Albumin, Serum 4.4 g/dL (3.2-5.0); Alkaline Phosphatase 77 U/L (45-117); Anion Gap 10 (5-15); BUN 18 mg/dL (7-18); BUN/Creat Ratio 13.3 RATIO (10-20); Calcium,Total 9.4 mg/dL (8.5-10.1); Chloride 105 mmol/L (98-107); Creatinine, Serum 1.35 mg/dL (0.70-1.30); EST Glomerular Filtration Rate 62 mL/min (>60); Est Glom Filt Rate - Afr Amer 74 mL/min (>60); Estimated Creatinine Clearance 64.33 ml/min; Globulin 3.3 g/dL (2.2-4.2); Glucose 137 mg/dL (74-106); Lipase 99 U/L (73-393); Potassium 4.4 mmol/L (3.5-5.1); Protein, Total 7.7 g/dL (6.4-8.2); Sodium Level 139 mmol/L (136-145)
[2020-08-13] MEDS: HYDROmorphone 1 MG/ML Syringe IV (22:28)
[2020-08-13 22:55] LABS: Bacteria 0 SEEN /hpf (None Seen); Mucous, Urine 0 SEEN /hpf (<or=2+)
[2020-08-13 23:11] LABS: Color, Urine Yellow (Yellow); Glucose, Dipstick Normal (Normal); Leukocyte Esterase-Dipstick 25 /ul (Negative); Nitrite-Dipstick Negative (Negative); Occult Blood-Urine 250 /ul (Negative); Protein-Dipstick 30 mg/dl (Negative); Urine Bilirubin Dipstick Negative (Negative); Urine Clarity Sl. Cloudy (Clear); Urine Urobilinogen 1 mg/dl (Normal)
[2020-08-13 23:22] LABS: Ketone-Dipstick 150 mg/dl (Negative)
[2020-08-13] MEDS: Ketorolac 15 MG/ML Vial IV (23:24)
[2020-08-13 23:25] LABS: Amorphous Sediment 1+ PHOS; Red Blood Cells-Urine 25-50 SEEN /hpf (0-5); Squamous Epithelial Cells - UA 0-5 SEEN /hpf (0-5); White Blood Cells 0-5 SEEN /hpf (0-5)
[2020-08-13 23:28] VITALS: BP 114/80; PULSE 58; RESP 18
--- NOTE | 2020-08-13 23:44 | ED.DCSUM_ITS ---
History of Present Illness Chief Complaint: Abd Pain Narrative: Patient presents with right-sided abdominal pain and flank pain that started about an hour prior to arrival, it started quite suddenly. There is no radiation to the groin or testicle. There is some nausea but no vomiting. No fever or chills. No left-sided abdominal pain. He describes the pain is sharp stabbing waxing and waning. Past Medical History - Allergies and Home Meds Allergies/Adverse Reactions: Allergies No Known Allergies Allergy (Verified 08/13/20 19:52) Primary Care Physician: Care Physician,No Primary [Primary Care Provider] - Past Medical History: None Smoking Status: Never smoker Review of Systems All systems negative except as indicated General: Denies: Fever Cardiovascular: Denies: Chest pain, Palpitations Respiratory: Denies: Dyspnea, Cough Gastrointestinal: Reports: Abdominal pain, Nausea Genitourinary: Denies: Dysuria, Hematuria, Frequency Musculoskeletal: Reports: Back pain. Denies: Myalgias Skin: Denies: Rash Neurological: Denies: Headache, Weakness Psych: Denies: Depression Endocrine: Denies: Polyuria Hematologic: Denies: Easy bruising Physical Exam Vital Signs/Narrative: Vital Signs Temp Pulse Resp BP Pulse Ox 08/13/20 23:28 58 L 18 114/80 08/13/20 19:52 96.4 F L 62 15 140/86 H 100 08/13/20 19:50 96.4 F L 62 15 140/86 H 100 General: Well nourished, - - He appears in some distress Eyes: Perrl, EOMI ENT: Moist mucous membranes Neck: Supple Cardiovascular: Regular rate, Regular rhythm Respiratory: No distress, CTA bilaterally Abdomen: Soft, - - There is right mid and right lower abdominal pain without any guarding or rebound. Back: CVA tenderness Extremities: Nontender, No edema Skin: Normal color Neurological: Alert, Oriented x3 Diagnostic/Tx/Re-eval - Medical Decision Making Patient is found to have a 1 mm kidney stone. He appears well his pain is now improved. I will discharge with analgesia. ED Disposition - Plan for ED Patient: Disposition: Home or Assisted Living Diagnosis: Kidney stone Instructions: ED Kidney Stone w/ Colic Prescriptions: Oxycodone HCl/Acetaminophen [Percocet 5/325] 1 tablet PO Q6H PRN PRN 3 Days #12 tablet PRN Reason: Pain Transmission Status: Sent to [id number] Referrals: Brayan Ramesh MD [STAFF PHYSICIAN] - 3-5 Days
[2020-08-14] MEDS: oxyCODONE 5 MG Tablet PO (00:13)
== END 2020-08-14 00:16 | disposition home or self-care (01) ==
PROVIDERS: Emergency Provider Emergency Medicine
DX: N20.0 Calculus of kidney (principal); Z79.02 Long term (current) use of antithrombotics/antiplatelets; Z79.82 Long term (current) use of aspirin; Z79.899 Other long term (current) drug therapy
CPT/HCPCS: 74176; 80048; 80053; 81001; 83690; 85025; 96361; 96374; 96375; 99284; J7030; A4216; J2405

== ENCOUNTER → 2020-10-11 09:03 | Outpatient (CLI) | payer BC, SELFPAY ==
[2020-10-11 10:38] LABS: Absolute Lymphocyte Count 1.87 X10^3/uL (0.83-4.51); Absolute Neutrophil Count 4.3 X10^3/uL (2.0-7.7); Basophil# 0.03 X10^3/uL; Basophil% 0.4 % (0-1); Eosinophil# 0.17 X10^3/uL; Eosinophils% 2.4 % (0-5); Hemoglobin 14.8 g/dL (13.0-16.5); Lymphocyte # 1.87 X10^3/ul (4.0); Lymphocyte % 26.9 % (19-41); Mean Corp Hgb Conc 33.6 g/dL (32-36); Mean Corpuscular Hgb 29.2 pg (27.0-32.0); Mean Corpuscular Volume 86.8 fL (80-94); Mean Platelet Vol. 10.9 fl (6.2-12.0); Monocyte# 0.59 X10^3/uL; Monocyte% 8.5 % (0-10); NRBC Flagged by Analyzer 0 % (0-5); Neutrophil # 4.26 X10^3/uL (2.7-7.7); Neutrophil % 61.5 % (47-70); Platelet Count 262 K/mm3 (150-450); RBC Distribution Width CV 12.3 % (11.6-14.6); RBC Distribution Width SD 38.7 fl (35.1-43.9); Red Blood Count 5.07 M/mm3 (4.6-6.2); White Blood Count 6.9 K/mm3 (4.4-11.0)
[2020-10-11 11:16] LABS: ALB/GLOB Ratio 1.2 RATIO (0.9-2.4); AST(SGOT) 24 U/L (15-37); Alanine Aminotransfer ALT/SGPT 50 U/L (16-61); Albumin, Serum 3.9 g/dL (3.2-5.0); Alkaline Phosphatase 83 U/L (45-117); Anion Gap 6 (5-15); BUN 11 mg/dL (7-18); BUN/Creat Ratio 10.3 RATIO (10-20); Calcium,Total 8.8 mg/dL (8.5-10.1); Chloride 109 mmol/L (98-107); Cholesterol 107 mg/dL (200); Creatinine, Serum 1.07 mg/dL (0.70-1.30); EST Glomerular Filtration Rate 80 mL/min (>60); Est Glom Filt Rate - Afr Amer 97 mL/min (>60); Globulin 3.2 g/dL (2.2-4.2); Glucose 94 mg/dL (74-106); High Density Lipoprotein 31 mg/dL; Protein, Total 7.1 g/dL (6.4-8.2); Sodium Level 141 mmol/L (136-145); Thyroid Stim Hormone (TSH) 3.07 uIU/mL (0.358-3.74); Triglycerides 172 mg/dL; Very Low Density Lipoprotein 34 mg/dL (5-40)
== END ==
PROVIDERS: PCP Family Medicine; Referring Provider Family Medicine; Visit Provider Family Medicine
DX: I10 Essential (primary) hypertension (principal)
CPT/HCPCS: 36415; 80053; 80061; 84443; 85025

== ENCOUNTER → 2021-08-13 08:49 | Outpatient (CLI) | payer BC, SELFPAY ==
[2021-08-13 08:52] LABS: Bacteria 0 SEEN /hpf (None Seen); Mucous, Urine 0 SEEN /hpf (<or=2+); Red Blood Cells-Urine 0 SEEN /hpf (0-5); Squamous Epithelial Cells - UA 0 SEEN /hpf (0-5); White Blood Cells 0 SEEN /hpf (0-5)
[2021-08-13 10:11] LABS: Absolute Lymphocyte Count 1.66 X10^3/uL (0.83-4.51); Absolute Neutrophil Count 3.6 X10^3/uL (2.0-7.7); Basophil# 0.03 X10^3/uL; Basophil% 0.5 % (0-1); Eosinophil# 0.16 X10^3/uL; Eosinophils% 2.7 % (0-5); Hematocrit 42.3 % (40-54); Hemoglobin 13.9 g/dL (13.0-16.5); Lymphocyte # 1.66 X10^3/ul (0.83-4.51); Lymphocyte % 27.8 % (19-41); Mean Corp Hgb Conc 32.9 g/dL (32-36); Mean Corpuscular Hgb 29.3 pg (27.0-32.0); Mean Corpuscular Volume 89.2 fL (80-94); Mean Platelet Vol. 11.1 fl (6.2-12.0); Monocyte# 0.51 X10^3/uL; Monocyte% 8.5 % (0-10); NRBC Flagged by Analyzer 0 % (0-5); Neutrophil # 3.59 X10^3/uL (2.7-7.7); Neutrophil % 60.2 % (47-70); Platelet Count 255 K/mm3 (150-450); RBC Distribution Width CV 12.7 % (11.6-14.6); Red Blood Count 4.74 M/mm3 (4.6-6.2)
[2021-08-13 10:12] LABS: Color, Urine Yellow (Yellow); Glucose, Dipstick Normal (Normal); Ketone-Dipstick Negative (Negative); Leukocyte Esterase-Dipstick Negative /ul (Negative); Nitrite-Dipstick Negative (Negative); Occult Blood-Urine Negative /ul (Negative); Protein-Dipstick Negative (Negative); Specific Gravity, Urine 1.015 (1.002-1.030); Urine Bilirubin Dipstick Negative (Negative); Urine Clarity Clear (Clear); Urine Urobilinogen Normal (Normal)
[2021-08-13 10:36] LABS: ALB/GLOB Ratio 1.2 RATIO (0.9-2.4); AST(SGOT) 23 U/L (15-37); Alanine Aminotransfer ALT/SGPT 41 U/L (16-61); Albumin, Serum 3.6 g/dL (3.2-5.0); Alkaline Phosphatase 67 U/L (45-117); Anion Gap 8 (5-15); BUN 11 mg/dL (7-18); BUN/Creat Ratio 10.8 RATIO (10-20); Calcium,Total 8.7 mg/dL (8.5-10.1); Chloride 107 mmol/L (98-107); Cholesterol 108 mg/dL (200); Creatinine, Serum 1.02 mg/dL (0.70-1.30); EST Glomerular Filtration Rate 85 mL/min (>60); Est Glom Filt Rate - Afr Amer 102 mL/min (>60); Globulin 3.1 g/dL (2.2-4.2); Glucose 91 mg/dL (74-106); High Density Lipoprotein 30 mg/dL; Potassium 4.2 mmol/L (3.5-5.1); Protein, Total 6.7 g/dL (6.4-8.2); Sodium Level 140 mmol/L (136-145); Thyroid Stim Hormone (TSH) 1.71 uIU/mL (0.358-3.74); Triglycerides 165 mg/dL; Very Low Density Lipoprotein 33 mg/dL (5-40)
== END ==
PROVIDERS: PCP Family Medicine; Referring Provider Family Medicine; Visit Provider Family Medicine
DX: I25.10 Atherosclerotic heart disease of native coronary artery without angina pectoris (principal); I10 Essential (primary) hypertension
CPT/HCPCS: 36415; 80053; 80061; 81001; 84443; 85025

== ENCOUNTER 2021-09-10 06:20 | Outpatient (CLI) | payer BC, SELFPAY ==
--- NOTE | 2021-09-10 11:56 | STRESSREP ---
Stress Test Report Exercise myocardial perfusion stress test. 41-year-old male with a history of previous coronary disease status post angioplasty and stenting of the LAD and residual disease in the right coronary artery and circumflex artery. Stress protocol: Resting EKG demonstrates normal sinus rhythm with a rate of 65 bpm normal intervals are noted resting blood pressure is 122/78 mmHg. The patient exercised according to regular Mitchell protocol for total duration of 10 minutes completing 1 minute into stage IV of the Mitchell protocol the maximum heart rate attained 155 bpm which was 87% of maximum predicted heart rate the maximum workload was 13.3 metabolic equivalents. At rest there were no ST or T wave changes noted suggest ischemia and at peak exercise upsloping ST changes only were noted with did not meet the criteria for ischemia. No clinical angina was noted the test was terminated due to dyspnea and the target heart rate being achieved. The peak blood pressure is 142/60 mmHg. Myocardial perfusion protocol. 11.8 mCi of technetium 99m sestamibi was injected at rest. The patient exercised according to regular Mitchell protocol for total duration of 10 minutes and at peak exercise 34.6 mCi of technetium 99m sestamibi was injected stress images were obtained stress and rest images were reconstructed and compared in the short axis vertical long horizontal long axis. Gated images were also obtained Perfusion SPECT analysis: Review of the stress images demonstrate mild reduction of perfusion noted in the anteroseptal and apical bower. This is noted on the stress and resting images to a similar extent. The rest of the bower appear to be well perfused. The above is suggestive of a previous anterior septal and apical infarct. No reversibility is noted suggest ischemia no previous infarcts are noted in other territories. Gated SPECT analysis: The gated ejection fraction is 60%. Conclusion: Exercise myocardial perfusion stress test with no evidence of ischemia at a high workload. Previous anteroseptal infarct is noted.
== END 2021-09-10 23:59 | disposition short-term general hospital (02) ==
LOC: CVS 06:22
PROVIDERS: PCP Family Medicine; Referring Provider Internal Medicine Cardiovascular Disease; Visit Provider Internal Medicine Cardiovascular Disease
DX: I25.2 Old myocardial infarction (principal)
CPT/HCPCS: 78452; 93017; A9500; A4216

== ENCOUNTER → 2022-02-11 | Outpatient (CLI) | payer BC, SELFPAY ==
[2022-02-11 10:20] LABS: Absolute Lymphocyte Count 1.75 X10^3/uL (0.83-4.51); Absolute Neutrophil Count 4.6 X10^3/uL (2.0-7.7); Basophil# 0.03 X10^3/uL; Basophil% 0.4 % (0-1); Eosinophil# 0.28 X10^3/uL; Eosinophils% 3.9 % (0-5); Hematocrit 41.6 % (40-54); Hemoglobin 13.8 g/dL (13.0-16.5); Lymphocyte # 1.75 X10^3/ul (0.83-4.51); Lymphocyte % 24.1 % (19-41); Mean Corp Hgb Conc 33.2 g/dL (32-36); Mean Corpuscular Hgb 29.6 pg (27.0-32.0); Mean Corpuscular Volume 89.1 fL (80-94); Mean Platelet Vol. 10.7 fl (6.2-12.0); Monocyte# 0.58 X10^3/uL; NRBC Flagged by Analyzer 0 % (0-5); Neutrophil % 63.2 % (47-70); Platelet Count 254 K/mm3 (150-450); RBC Distribution Width SD 42.1 fl (35.1-43.9); Red Blood Count 4.67 M/mm3 (4.6-6.2); White Blood Count 7.3 K/mm3 (4.4-11.0)
[2022-02-11 10:44] LABS: ALB/GLOB Ratio 1.2 RATIO (0.9-2.4); AST(SGOT) 26 U/L (15-37); Alanine Aminotransfer ALT/SGPT 55 U/L (16-61); Albumin, Serum 3.6 g/dL (3.2-5.0); Alkaline Phosphatase 64 U/L (45-117); Anion Gap 5 (5-15); BUN 14 mg/dL (7-18); BUN/Creat Ratio 13.3 RATIO (10-20); Calcium,Total 8.6 mg/dL (8.5-10.1); Chloride 106 mmol/L (98-107); Cholesterol 131 mg/dL (200); Creatinine, Serum 1.05 mg/dL (0.70-1.30); EST Glomerular Filtration Rate 82 mL/min (>60); Est Glom Filt Rate - Afr Amer 99 mL/min (>60); Globulin 2.9 g/dL (2.2-4.2); Glucose 108 mg/dL (74-106); High Density Lipoprotein 27 mg/dL; Potassium 4.4 mmol/L (3.5-5.1); Protein, Total 6.5 g/dL (6.4-8.2); Sodium Level 139 mmol/L (136-145); Triglycerides 380 mg/dL; Very Low Density Lipoprotein 76 mg/dL (5-40)
[2022-02-12 10:45] LABS: Hemoglobin A1c 5.3 % (3.8-5.6)
== END | disposition home or self-care (01) ==
LOC: MFPLAB 09:10
PROVIDERS: PCP Family Medicine; Referring Provider Family Medicine; Visit Provider Family Medicine
DX: I25.10 Atherosclerotic heart disease of native coronary artery without angina pectoris (principal)
CPT/HCPCS: 36415; 80053; 80061; 83036; 85025

== ENCOUNTER → 2022-08-13 | Outpatient (CLI) | payer BC, SELFPAY ==
[2022-08-13 12:17] LABS: Absolute Lymphocyte Count 2.19 X10^3/uL (0.83-4.51); Absolute Neutrophil Count 4.7 X10^3/uL (2.0-7.7); Basophil# 0.04 X10^3/uL; Basophil% 0.5 % (0-1); Eosinophil# 0.14 X10^3/uL; Eosinophils% 1.8 % (0-5); Hematocrit 44.9 % (40-54); Hemoglobin 14.9 g/dL (13.0-16.5); Lymphocyte # 2.19 X10^3/ul (0.83-4.51); Lymphocyte % 28.8 % (19-41); Mean Corp Hgb Conc 33.2 g/dL (32-36); Mean Corpuscular Hgb 29.3 pg (27.0-32.0); Mean Corpuscular Volume 88.2 fL (80-94); Mean Platelet Vol. 10.9 fl (6.2-12.0); Monocyte# 0.56 X10^3/uL; Monocyte% 7.4 % (0-10); NRBC Flagged by Analyzer 0 % (0-5); Neutrophil # 4.65 X10^3/uL (2.7-7.7); Neutrophil % 61.1 % (47-70); Platelet Count 254 K/mm3 (150-450); RBC Distribution Width CV 12.6 % (11.6-14.6); RBC Distribution Width SD 41.1 fl (35.1-43.9); Red Blood Count 5.09 M/mm3 (4.6-6.2); White Blood Count 7.6 K/mm3 (4.4-11.0)
[2022-08-13 12:45] LABS: Vitamin B12 180 pg/mL (211-911); Vitamin D,25 Hydroxy 24.6 ng/mL
[2022-08-13 12:51] LABS: ALB/GLOB Ratio 1.4 RATIO (0.9-2.4); AST(SGOT) 45 U/L (15-37); Alanine Aminotransfer ALT/SGPT 117 U/L (16-61); Alkaline Phosphatase 74 U/L (45-117); Anion Gap 6 (5-15); BUN 16 mg/dL (7-18); BUN/Creat Ratio 14.8 RATIO (10-20); Calcium,Total 8.8 mg/dL (8.5-10.1); Chloride 105 mmol/L (98-107); Cholesterol 144 mg/dL (200); Creatinine, Serum 1.08 mg/dL (0.70-1.30); EST Glomerular Filtration Rate 79 mL/min (>60); Est Glom Filt Rate - Afr Amer 95 mL/min (>60); Globulin 2.8 g/dL (2.2-4.2); Glucose 89 mg/dL (74-106); High Density Lipoprotein 33 mg/dL; Potassium 4.4 mmol/L (3.5-5.1); Protein, Total 6.8 g/dL (6.4-8.2); Sodium Level 139 mmol/L (136-145); T4 Free Direct 1.08 ng/dL (0.76-1.46); Triglycerides 258 mg/dL; Very Low Density Lipoprotein 52 mg/dL (5-40)
[2022-08-14 13:13] LABS: Hepatitis B Surface Antibody Non-Reactive; Hepatitis B Surface Antigen Non-Reactive (Nonreactive); Hepatitis C Antibody Non-Reactive (Nonreactive)
== END | disposition home or self-care (01) ==
LOC: MFPLAB 10:37
PROVIDERS: PCP Family Medicine; Referring Provider Family Medicine; Visit Provider Family Medicine
DX: I25.10 Atherosclerotic heart disease of native coronary artery without angina pectoris (principal); R79.89 Other specified abnormal findings of blood chemistry; E55.9 Vitamin D deficiency, unspecified; R53.83 Other fatigue
CPT/HCPCS: 36415; 80053; 80061; 82306; 82607; 84439; 84443; 85025; 86706; 86803; 87340

== ENCOUNTER → 2022-09-04 | Outpatient (CLI) | payer BC, SELFPAY ==
--- NOTE | 2022-09-04 07:55 | ECHOD_ITS ---
Version 2 Reason For Study: CAD Procedure This was a 2D Doppler, Color Flow transthoracic echocardiogram. Exam performed in department. Left Ventricle Normal LV size. Mild to moderate segmental systolic dysfunction (see wall motion). The left ventricular ejection fraction is 40 %. Stage 2 diastolic dysfunction. Mid-Anterior : Hypokinetic. [place] : Hypokinetic. Mid-anteroseptal : Hypokinetic. There are regional wall motion abnormalities as specified. Right Ventricle Normal RV size. Normal systolic function. Atria Normal left atrium. Normal right atrium. Mitral Valve Normal mitral valve. Mild (1+) eccentric mitral valve insufficiency. Tricuspid Valve Normal tricuspid valve. Mild tricuspid valve insufficiency. Aortic Valve Trisinus/trileaflet aortic valve. Pulmonic Valve Normal pulmonic valve. Mild (1+) pulmonic valve insufficiency. Great Vessels Normal aortic root. The pulmonary artery is normal size. Normal inferior vena cava. Pericardium/Pleural No pericardial effusion. MMode/2D Measurements & Calculations LVIDd: 5.1 cm IVSd: 1.1 cm Ao root diam: 3.0 cm LVIDs: 3.6 cm LVPWd: 1.3 cm RVDd: 3.2 cm FS: 28.6 % LAV(MOD-bp): 35.3 ml LVAd ap4: 34.1 cm2 LVAd ap2: 33.8 cm2 LAV(MOD-bp) Indexed: 18.2 ml/m2 LVLd ap4: 8.5 cm LVLd ap2: 8.7 cm LAV(MOD-sp2): 35.5 ml EDV(MOD-sp4): 111.8 ml EDV(MOD-sp2): 108.8 ml LAV(MOD-sp4): 32.6 ml EDV(sp4-el): 116.3 ml EDV(sp2-el): 111.6 ml LVAs ap4: 24.6 cm2 LVAs ap2: 22.8 cm2 LVLs ap4: 7.7 cm LVLs ap2: 7.2 cm ESV(MOD-sp4): 66.7 ml ESV(MOD-sp2): 58.1 ml ESV(sp4-el): 66.9 ml ESV(sp2-el): 61.0 ml EF(MOD-sp4): 40.3 % EF(MOD-sp2): 46.6 % EF(sp4-el): 42.4 % SV(MOD-sp4): 45.1 ml SV(MOD-sp2): 50.8 ml SV(sp4-el): 49.3 ml LA dimension(2D): 3.6 cm LA A4 area: 13.8 cm2 RA A4 area: 10.7 cm2 Doppler Measurements & Calculations MV E max zaki: 78.7 cm/sec Lat Peak E' Zaki: 10.4 cm/sec Med Peak E' Zaki: 7.0 cm/sec MV A max zaki: 60.5 cm/sec E/E' lat: 7.6 E/E' med: 11.2 MV E/A: 1.3 Ao V2 max: 120.2 cm/sec LV V1 max: 91.8 cm/sec PA V2 max: 107.7 cm/sec Ao max P.8 mmHg LV V1 max P.4 mmHg Ao V2 mean: 85.8 cm/sec LV V1 mean P.8 mmHg Ao mean P.3 mmHg LV V1 mean: 63.5 cm/sec Ao V2 VTI: 28.4 cm LV V1 VTI: 20.4 cm AV (velocity ratio): 0.72 TR max zaki: 221.7 cm/sec TR max P.7 mmHg ECHO/Echo Complete Interpretation Summary Normal LV size. Mild to moderate segmental systolic dysfunction (see wall motion). The left ventricular ejection fraction is 40 %. Stage 2 diastolic dysfunction. Mild (1+) eccentric mitral valve insufficiency. Mild tricuspid valve insufficiency. Compared to previous study, the left ventricular systolic function is the same. . The global longitudinal strain is moderately abnormal. The global longitudinal strain = -1 3.4% (abnormal). Ordering Physician: Rocco Vasquez Referring Physician: Milan Navas Performed By: Gail Lea RDCS
== END | disposition home or self-care (01) ==
PROVIDERS: PCP Family Medicine; Referring Provider Internal Medicine Cardiovascular Disease; Visit Provider Internal Medicine Cardiovascular Disease
DX: Z95.5 Presence of coronary angioplasty implant and graft (principal); I25.10 Atherosclerotic heart disease of native coronary artery without angina pectoris
CPT/HCPCS: 93306

== ENCOUNTER → 2023-02-04 | Outpatient (CLI) | payer BC, SELFPAY ==
[2023-02-04 12:30] LABS: Absolute Neutrophil Count 3.3 X10^3/uL (2.0-7.7); Basophil# 0.03 X10^3/uL; Basophil% 0.5 % (0-1); Eosinophil# 0.18 X10^3/uL; Hematocrit 44.6 % (40-54); Hemoglobin 14.7 g/dL (13.0-16.5); Lymphocyte % 33.1 % (19-41); Mean Corpuscular Hgb 29.6 pg (27.0-32.0); Mean Corpuscular Volume 89.7 fL (80-94); Mean Platelet Vol. 11.7 fl (6.2-12.0); Monocyte# 0.54 X10^3/uL; Monocyte% 8.9 % (0-10); NRBC Flagged by Analyzer 0 % (0-5); Neutrophil # 3.28 X10^3/uL (2.7-7.7); Neutrophil % 54.2 % (47-70); Platelet Count 246 K/mm3 (150-450); RBC Distribution Width CV 13.2 % (11.6-14.6); RBC Distribution Width SD 43.5 fl (35.1-43.9); Red Blood Count 4.97 M/mm3 (4.6-6.2); White Blood Count 6.1 K/mm3 (4.4-11.0)
[2023-02-04 12:32] LABS: ALB/GLOB Ratio 1.2 RATIO (0.9-2.4); AST(SGOT) 28 U/L (15-37); Alanine Aminotransfer ALT/SGPT 50 U/L (16-61); Albumin, Serum 3.8 g/dL (3.2-5.0); Alkaline Phosphatase 72 U/L (45-117); Anion Gap 6 (5-15); BUN 14 mg/dL (7-18); BUN/Creat Ratio 14.1 RATIO (10-20); Calcium,Total 8.5 mg/dL (8.5-10.1); Chloride 108 mmol/L (98-107); Cholesterol 116 mg/dL (200); Creatinine, Serum 0.99 mg/dL (0.70-1.30); EST Glomerular Filtration Rate 87 mL/min (>60); Est Glom Filt Rate - Afr Amer 105 mL/min (>60); Globulin 3.2 g/dL (2.2-4.2); Glucose 98 mg/dL (74-106); High Density Lipoprotein 35 mg/dL; Potassium 4.2 mmol/L (3.5-5.1); Sodium Level 139 mmol/L (136-145); Triglycerides 168 mg/dL; Very Low Density Lipoprotein 34 mg/dL (5-40)
== END | disposition home or self-care (01) ==
LOC: MFPLAB 10:26
PROVIDERS: PCP Family Medicine; Visit Provider Family Medicine
DX: I25.10 Atherosclerotic heart disease of native coronary artery without angina pectoris (principal)
CPT/HCPCS: 36415; 80053; 80061; 85025

== ENCOUNTER → 2023-08-10 | Outpatient (CLI) | payer BC, SELFPAY ==
[2023-08-10 12:12] LABS: Absolute Lymphocyte Count 2.11 X10^3/uL (0.83-4.51); Absolute Neutrophil Count 4.4 X10^3/uL (2.0-7.7); Basophil# 0.05 X10^3/uL; Basophil% 0.6 % (0-1); Eosinophil# 0.55 X10^3/uL; Eosinophils% 6.9 % (0-5); Hematocrit 43.9 % (40-54); Hemoglobin 14.2 g/dL (13.0-16.5); Lymphocyte # 2.11 X10^3/ul (0.83-4.51); Lymphocyte % 26.6 % (19-41); Mean Corp Hgb Conc 32.3 g/dL (32-36); Mean Corpuscular Hgb 29.2 pg (27.0-32.0); Mean Corpuscular Volume 90.1 fL (80-94); Mean Platelet Vol. 11.2 fl (6.2-12.0); Monocyte# 0.79 X10^3/uL; Monocyte% 9.9 % (0-10); NRBC Flagged by Analyzer 0 % (0-5); Neutrophil # 4.41 X10^3/uL (2.7-7.7); Neutrophil % 55.6 % (47-70); Platelet Count 257 K/mm3 (150-450); RBC Distribution Width CV 12.7 % (11.6-14.6); Red Blood Count 4.87 M/mm3 (4.6-6.2); White Blood Count 7.9 K/mm3 (4.4-11.0)
[2023-08-10 12:53] LABS: Vitamin B12 505 pg/mL (211-911); Vitamin D,25 Hydroxy 44.3 ng/mL
[2023-08-10 13:19] LABS: ALB/GLOB Ratio 1.4 RATIO (0.9-2.4); AST(SGOT) 21 U/L (15-37); Alanine Aminotransfer ALT/SGPT 40 U/L (16-61); Albumin, Serum 4.1 g/dL (3.2-5.0); Alkaline Phosphatase 62 U/L (45-117); Anion Gap 5 (5-15); BUN 13 mg/dL (7-18); BUN/Creat Ratio 11.8 RATIO (10-20); Calcium,Total 8.6 mg/dL (8.5-10.1); Chloride 108 mmol/L (98-107); Cholesterol 111 mg/dL (200); EST Glomerular Filtration Rate 77 mL/min (>60); Est Glom Filt Rate - Afr Amer 93 mL/min (>60); Globulin 2.9 g/dL (2.2-4.2); Glucose 87 mg/dL (74-106); High Density Lipoprotein 35 mg/dL; Sodium Level 140 mmol/L (136-145); Triglycerides 174 mg/dL; Very Low Density Lipoprotein 35 mg/dL (5-40)
== END | disposition home or self-care (01) ==
LOC: LAB 10:25
PROVIDERS: PCP Family Medicine; Referring Provider Family Medicine; Visit Provider Family Medicine
DX: I25.10 Atherosclerotic heart disease of native coronary artery without angina pectoris (principal); R79.89 Other specified abnormal findings of blood chemistry; E55.9 Vitamin D deficiency, unspecified; E53.8 Deficiency of other specified B group vitamins
CPT/HCPCS: 36415; 80053; 80061; 82306; 82607; 82746; 85025

== ENCOUNTER → 2023-08-23 | Outpatient (CLI) | payer BC, SELFPAY ==
--- NOTE | 2023-08-23 09:58 | ECHOD_ITS ---
Reason For Study: EVAL EF Procedure This was a 2D Doppler, Color Flow transthoracic echocardiogram. Myocardial strain analysis was performed in this exam to aid in the assessment of cardiac function. Exam performed in department. Left Ventricle Normal LV size. The left ventricular ejection fraction is 45 %. Mild to moderate segmental systolic dysfunction (see wall motion). [place] : Severely Hypokinetic. Mid-anteroseptal : Hypokinetic. Mid- Anterior : Hypokinetic. Right Ventricle Normal RV size. Normal systolic function. Atria Normal left atrium. Normal right atrium. Mitral Valve Normal mitral valve. Tricuspid Valve Normal tricuspid valve. Mild tricuspid valve insufficiency. Pulmonary artery systolic pressure is 20 mmHg. Aortic Valve Trisinus/trileaflet aortic valve. Great Vessels Normal aortic root. The pulmonary artery is normal size. Normal inferior vena cava. Pericardium/Pleural No pericardial effusion. MMode/2D Measurements & Calculations LVIDd: 5.2 cm IVSd: 1.0 cm Ao root diam: 3.2 cm LVIDs: 3.8 cm LVPWd: 0.98 cm RVDd: 3.5 cm FS: 25.4 % LAV(MOD-bp): 27.0 ml LVAd ap4: 32.7 cm2 LVAd ap2: 34.5 cm2 LAV(MOD-bp) Indexed: 14.4 ml/m2 LVLd ap4: 8.2 cm LVLd ap2: 8.7 cm LAV(MOD-sp2): 27.3 ml EDV(MOD-sp4): 105.4 ml EDV(MOD-sp2): 114.5 ml LAV(MOD-sp4): 26.3 ml EDV(sp4-el): 110.5 ml EDV(sp2-el): 116.2 ml LVAs ap4: 23.0 cm2 LVAs ap2: 23.5 cm2 LVLs ap4: 7.6 cm LVLs ap2: 7.6 cm ESV(MOD-sp4): 56.2 ml ESV(MOD-sp2): 59.7 ml ESV(sp4-el): 59.1 ml ESV(sp2-el): 61.4 ml EF(MOD-sp4): 46.7 % EF(MOD-sp2): 47.8 % EF(sp4-el): 46.5 % SV(MOD-sp4): 49.2 ml SV(MOD-sp2): 54.8 ml SV(sp4-el): 51.5 ml LA dimension(2D): 3.3 cm LA A4 area: 12.5 cm2 RA A4 area: 11.9 cm2 Time Measurements MV dec time: 0.25 sec Doppler Measurements & Calculations MV E max zaki: 78.5 cm/sec Lat Peak E' Zaki: 12.3 cm/sec Med Peak E' Zaki: 8.0 cm/sec MV A max zaki: 48.1 cm/sec E/E' lat: 6.4 E/E' med: 9.9 MV E/A: 1.6 Ao V2 max: 104.4 cm/sec LV V1 max: 96.7 cm/sec PA V2 max: 94.1 cm/sec Ao max P.4 mmHg LV V1 max P.7 mmHg TR max zaki: 190.3 cm/sec TR max P.5 mmHg ECHO/Echo Complete Interpretation Summary The left ventricular ejection fraction is 45 %. Normal LV size. Mild to moderate segmental systolic dysfunction (see wall motion). Pulmonary artery systolic pressure is 20 mmHg. The global longitudinal strain is moderately abnormal. Ordering Physician: Oriana Torres/Rocco Vasquez Referring Physician: ORIANA NAGEL Performed By: Stella Enciso RDCS
== END | disposition home or self-care (01) ==
PROVIDERS: PCP Family Medicine; Referring Provider Nurse Practitioner Family; Visit Provider Nurse Practitioner Family
DX: Z95.5 Presence of coronary angioplasty implant and graft (principal); E78.5 Hyperlipidemia, unspecified; I25.5 Ischemic cardiomyopathy
CPT/HCPCS: 93306

== ENCOUNTER → 2024-10-12 | Outpatient (CLI) | payer BC, SELFPAY ==
[2024-10-12 17:01] LABS: AST(SGOT) 18 U/L (15-37); Alanine Aminotransfer ALT/SGPT 30 U/L (16-61); Albumin, Serum 4.3 g/dL (3.2-5.0); Alkaline Phosphatase 69 U/L (45-117); Cholesterol 104 mg/dL (200); High Density Lipoprotein 35 mg/dL; Protein, Total 7.3 g/dL (6.4-8.2); Triglycerides 135 mg/dL; Very Low Density Lipoprotein 27 mg/dL (5-40)
== END | disposition home or self-care (01) ==
LOC: LAB 15:49
PROVIDERS: PCP Family Medicine; Referring Provider Internal Medicine Cardiovascular Disease; Visit Provider Internal Medicine Cardiovascular Disease
DX: E78.2 Mixed hyperlipidemia (principal)
CPT/HCPCS: 36415; 80061; 80076

== ENCOUNTER → 2025-05-03 | Outpatient (CLI) | payer BC, SELFPAY ==
[2025-05-03 12:03] LABS: AST(SGOT) 20 U/L (<=37); Alanine Aminotransfer ALT/SGPT 22 U/L (<=46); Albumin, Serum 4.4 g/dL (3.5-5.0); Alkaline Phosphatase 68 U/L (40-129); Bilirubin, Direct 0.22 mg/dL (0.00-0.30); Cholesterol 97 mg/dL (<=200); Globulin 2.2 g/dL (2.2-4.2); Low Density Lipoprotein Calc. 33 mg/dL; Triglycerides 181 mg/dL; Very Low Density Lipoprotein 36 mg/dL (5-40); cholesterol:hdl ratio screen 3.55
--- NOTE | 2025-05-07 14:09 | STRESSREP ---
Stress Test Report Exercise stress test. 45-year-old man with a history of coronary artery disease. Stress protocol: Resting EKG demonstrates normal sinus rhythm with a rate of 58 bpm resting blood pressure is 122/78 mmHg. The patient exercised according to the regular Mitchell protocol for a total duration of 10-1/2 minutes attaining a maximum heart rate of 150 bpm which was 86% of maximum predicted heart rate; the maximum workload was 13.4 metabolic equivalents. At rest there were no ST or T wave changes noted to suggest ischemia and at peak exercise upsloping ST changes only were noted which did not meet the criteria for ischemia. No clinical angina was noted the test was terminated due to the target heart rate being achieved/fatigue. The peak blood pressure was 148/68 mmHg. Rate-pressure product was 19,000. Conclusion: Stress test with no EKG changes for ischemia at a high workload.
== END | disposition home or self-care (01) ==
LOC: CVS 09:53
PROVIDERS: Nurse Practitioner Family; Referring Provider Internal Medicine Cardiovascular Disease; Visit Provider Internal Medicine Cardiovascular Disease
DX: I25.10 Atherosclerotic heart disease of native coronary artery without angina pectoris (principal); I25.2 Old myocardial infarction; I25.5 Ischemic cardiomyopathy; E78.2 Mixed hyperlipidemia; Z95.5 Presence of coronary angioplasty implant and graft
CPT/HCPCS: 36415; 80061; 80076; 93017